=== PATIENT | female | born 1970 | race Caucasian/White ===

== ENCOUNTER 2019-10-29 07:13 | Day surgery (SDC) | payer MEDICAID, SELFPAY ==
[2019-10-28 13:10] VITALS: BMI 25.7
--- NOTE | 2019-10-29 07:38 | ANES.PREANE2 ---
Pre-Anesthetic Assessment Pre-Anesthetic Assessment: Height/Weight: Height 1.63 m Weight 68.039 kg Preop Diagnosis: colon Proposed Procedure: Operation Date: 10/29/19 08:00 Proposed Procedures p Colonoscopy(Not Applicable) - Rodolfo Nguyen MD Was Beta Nic taken within 24 hours: N/A Last intake: Intake Last Liquid Date 10/29/19 Last Liquid Time 05:30 Last Solid Date 10/27/19 Last Solid Time 22:00 Last Intake: 05:30 Social: Social History: Tobacco and No alcohol Packs per day: 1 Pack years: 35 Exam: Pre-Anes Outpt Exam: alert, oriented x 3, clear to auscultation bilaterally and regular rate & rhythm Airway: Submandibular: WNL Cervical ROM: WNL MP: 1 Dentition: False Pulmonary: Pulmonary: None reported CV/HEM: CV/HEM: Anemia : : Chronic renal Insufficiency (Pt renal failure 3 yrs ago with sepsis) GI: GI: None reported Metabolic: Metabolic: None reported Musc/skel: Musc/skel: Lower Back Pain Neuropsych: Neuropsych: Anxiety and Depression Anesthetic Plan: ASA status: 2 Anesthesia: Anesthesia Evaluation and MAC Risk of > 500 ml blood loss (7ml/kg in children): No PFSH Anesthesia PFSH: Social History Smoking and tobacco status: light tobacco smoker Alcohol intake: current Alcohol intake frequency: holidays/special occasions only Data Anesthesia Cardiac Studies: No Data to Display
[2019-10-29 07:39] VITALS: BP 131/85; PULSE 76; RESP 18; TEMP 36.5; O2SAT 100
[2019-10-29] MEDS: sodium chloride 0.9% 1,000 ML 30 ML (07:55)
--- NOTE | 2019-10-29 08:12 | W.PM.OPSFHP ---
Same Day Surgery H&P Indication for Procedure/HPI DATE OF PROCEDURE: October 29, 2019 CHIEF COMPLAINT/INDICATIONFOR SURGICAL PROCEDURE: Rectal bleeding PREOP DIAGNOSIS: colon PLANNED PROCEDRUE: Operation Date: 10/29/19 08:00 Proposed Procedures p Colonoscopy(Not Applicable) - Rodolfo Nguyen MD 48-year-old female status post LAR for rectal cancer who had seen 6 months ago for bleeding per rectum. Patient was unable to complete her course of chemotherapy. She states that she could not make the ride here until now. Finally she decided to have her colonoscopy. She continues to have abdominal pain with alternating constipation and diarrhea and occasional blood in stools. Medications/Allergies* Home Medications Medication Instructions Recorded Confirmed Type cyclobenzaprine 10 mg PO TID PRN 09/07/19 10/29/19 History estradiol 1 mg PO DAILY 09/07/19 10/29/19 History protriptyline 10 mg PO QID 09/07/19 10/29/19 History ropinirole [Requip] 1.5 mg PO DAILY 09/07/19 10/29/19 History Allergies/Adverse Reactions Allergy/AdvReac Type Severity Reaction Status Date / Time fluoxetine [From Prozac] Allergy Unknown Verified 09/07/19 08:44 latex Allergy ALGY-Anaphy Verified 10/28/19 13:11 laxis NSAIDS (Non-Steroidal Allergy Unknown Verified 09/07/19 08:44 Anti-Inflamma Penicillins Allergy ALGY-Anaphy Verified 09/07/19 08:44 laxis Pertinent History/Comorbid Conditions* Medical History (Updated 10/29/19 @ 08:12 by Rodolfo Nguyen MD) History of rectal cancer Surgical History (Updated 10/29/19 @ 08:12 by Rodolfo Nguyen MD) History of removal of Port-a-Cath Hx of cholecystectomy Hx of colonoscopy Hx of hysterectomy Social History Smoking and tobacco status: light tobacco smoker Alcohol intake: current Alcohol intake frequency: holidays/special occasions only Pertinent Exam Findings alert, oriented x 3 and regular rate & rhythm Recommendations Surgery/Procedure today Coding Level of Care Code 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
[2019-10-29 08:29] VITALS: BP 100/71; PULSE 66; RESP 16; TEMP 36.3; O2SAT 99
--- NOTE | 2019-10-29 08:39 | ANE.PACU2 ---
 Inpatient post-anesthesia follow up: Airway intact: Yes Vital signs: Temperature 97.4 F Pulse Rate 66 Respiratory Rate 16 Blood Pressure 100/71 Pulse Oximetry 99 Oxygen Delivery Me thod Nasal Cannula Oxygen Flow Rate 2 Fraction of Inspir ed Oxygen Hydration adequate: Yes Nausea and vomiting: No Pain level: 1 Mental status: Baseline
[2019-10-29 08:42] VITALS: BP 113/76; PULSE 69; RESP 16; O2SAT 99
== END 2019-10-29 08:52 | disposition home or self-care (01) ==
PROVIDERS: Family Provider Family Medicine; Visit Provider Surgery
PROC: 0DJD8ZZ Inspection of Lower Intestinal Tract, Via Natural or Artificial Opening Endoscopic (ICD-10-PCS; CPT 45378; principal; 2019-10-29 08:00)
DX: K62.5 Hemorrhage of anus and rectum (principal); F17.210 Nicotine dependence, cigarettes, uncomplicated; Z85.048 Personal history of other malignant neoplasm of rectum, rectosigmoid junction, and anus
CPT/HCPCS: 12345; 36415; 45378; J2704; J7030

== ENCOUNTER 2019-10-29 09:26 | Outpatient (REF) | payer MEDICAID, SELFPAY ==
[2019-10-29 09:57] LABS: Carcinoembryonic Antigen 6.1 ng/mL (0.0-4.7)
== END 2019-10-29 09:27 | disposition home or self-care (01) ==
LOC: LAB 09:26
PROVIDERS: Family Provider Family Medicine; Visit Provider Surgery
DX: C20 Malignant neoplasm of rectum (principal)
CPT/HCPCS: 82378

== ENCOUNTER 2020-03-31 12:46 | Outpatient (CLI) | payer MEDICAID, SELFPAY ==
[2020-03-31] MEDS: iohexol 300 mg/mL 50 mL Btl PO (13:08)
--- NOTE | 2020-03-31 14:30 | CT_ITS ---
WS: [id number] CT ABDOMEN PELVIS TECHNIQUE: Contrast-enhanced CT of the abdomen and pelvis with coronal and sagittal reformatted image s. CLINICAL INFORMATION: hematochezia COMPARISON: CT abdomen pelvis June 01, 2018, , May 10, 2018 DLP: 1078.[address] scans at [facility] use at least one of these dose optimization techniques: automat ed exposure control; mA and/or kV adjustment per patient size (includes targeted exams where dose is matched to clinical indication); or iterative reconstruction. FINDINGS: Prior cholecystectomy. Again seen is heterogeneous decreased attenuation involving the right hepatic lobe similar in appearance to the prior examinations. Mild capsular contraction with a small amount o f subcapsular fluid/soft tissue thickening is unchanged. Hepatic veins and portal vein are patent. No rmal splenic vein. Lung bases are well aerated. Normal spleen. Small splenule. Normal GE junction. Pancreas is normal. Adrenal glands are normal. No hydronephrosis. Bilateral renal cysts. Normal calib er abdominal aorta. No abdominal or periaortic lymphadenopathy. Stable sigmoid anastomosis. No evidence of small or large bowel obstruction. Fat-containing umbilical hernia. Low-attenuation collection left pelvis measuring 5.5 x 4.5 cm new from previous. Recommend f urther evaluation with ultrasound. 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 Prior hysterectomy. Normal lumbar spine. CT/CT abdomen pelvis w con* [id number] IMPRESSION: 1. Again seen is heterogeneous enhancement involving the right hepatic lobe wi th capsular thickening/fluid. This is unchanged in appearance since prior exami nations. 2. Prior cholecystectomy. 3. New low-attenuation lesion in the left lower pelvis along the left adnexa m easuring 4.5 x 5.5 CM. This may represent an ovarian lesion or postoperative se harry. Recommend further evaluation with ultrasound. 4. Stable sigmoid anastomosis.
[2020-03-31] MEDS: iohexol 300 mg/mL 100 mL Btl IV (14:40)
== END 2020-03-31 12:47 | disposition home or self-care (01) ==
LOC: RADWPI 12:48
PROVIDERS: Family Provider Family Medicine; PCP Family Medicine; Visit Provider Surgery
DX: K92.1 Melena (principal); K63.89 Other specified diseases of intestine
CPT/HCPCS: 74177; Q9967

== ENCOUNTER 2020-04-08 07:36 | Outpatient (CLI) | payer MEDICAID, SELFPAY ==
--- NOTE | 2020-04-08 08:00 | US_ITS ---
WS: [id number] ULTRASOUND PELVIS TECHNIQUE: Transabdominal and transvaginal. ULTRASOUND PELVIS TECHNIQUE: Transabdominal. CLINICAL INFORMATION: fluid in pelvis per CT scan LMP: : No. COMPARISON: None. FINDINGS: Prior hysterectomy with both ovaries right. Adnexa: History of both ovaries removed. Anechoic cystic lesion left adnexa measuring 2.8 x 4.0 x 5.4 CM. This corresponds to the low-attenuation lesion on the recent CT. Slightly irregular border. Per ipheral nodularity with some vascularity. This lesion is indeterminant and considerations complex pos toperative seroma versus serous/mucinous cystic neoplasm. Recommend DEMAND INSPECTOR/surgery consultation for rese ction considering size. Free fluid: None. Other findings: None. US/US pelvic with transvaginal IMPRESSION: 1. Anechoic cystic lesion corresponds to the lesion seen on the recent CT rich uring 3.8 x 4.0 x 5.4 CCM. Slightly irregular border with peripheral nodularity with blood flow. Recommend DEMAND INSPECTOR/surgery consultation for consideration of resec tion.
== END 2020-04-08 07:37 | disposition home or self-care (01) ==
LOC: US 07:37
PROVIDERS: PCP Family Medicine; Visit Provider Surgery
DX: R93.89 Abnormal findings on diagnostic imaging of other specified body structures (principal)
CPT/HCPCS: 76830; 76856

== ENCOUNTER 2020-04-25 07:47 | Day surgery (SDC) | payer MEDICAID, SELFPAY ==
[2020-04-22 14:13] VITALS: BMI 25.7
[2020-04-25 08:07] VITALS: BP 121/86; PULSE 67; RESP 18; TEMP 36.1; O2SAT 95
[2020-04-25] MEDS: sodium chloride 0.9% 1,000 ML 30 ML IV (08:14)
--- NOTE | 2020-04-25 08:55 | W.PM.OPSUD ---
Surgery/Procedure H&P Update DATE OF PROCEDURE: April 25, 2020 DATE H&P PERFORMED: 04/18/20 H&P UPDATE INFORMATION: I have reviewed H&P completed within last 30 days, I have examined patient prior to procedure and No changes to prior documentation PREOP DIAGNOSIS: Enlarged supraclavicular lymph node PLANNED PROCEDURE: Operation Date: 04/25/20 09:45 Proposed Procedures p Excision Lymph Node of right supraclavicular [id number] R22.1(Right) - Rodolfo Nguyen MD
--- NOTE | 2020-04-25 09:01 | ANES.PREANE2 ---
Pre-Anesthetic Assessment Pre-Anesthetic Assessment: Height/Weight: Height 1.63 m Weight 68.039 kg Temp Pulse Resp BP Pulse Ox 97.0 F L 67 18 121/86 95 04/25/20 08:07 04/25/20 08:07 04/25/20 08:07 04/25/20 08:07 04/25/20 08:07 Preop Diagnosis: Enlarged supraclavicular lymph node Proposed Procedure: Operation Date: 04/25/20 09:45 Proposed Procedures p Excision Lymph Node of right supraclavicular [id number] R22.1(Right) - Rodolfo Nguyen MD Familial anesthetic complications: None Last intake: Intake Last Liquid Date 04/24/20 Last Liquid Time 20:00 Last Solid Date 04/24/20 Last Solid Time 08:00 Social: Social History: Tobacco and No alcohol Exam: Pre-Anes Outpt Exam: alert, oriented x 3, clear to auscultation bilaterally and regular rate & rhythm Airway: Cervical ROM: WNL MP: 3 Dentition: False GI: GI: GERD Musc/skel: Musc/skel: Fibromyalgia and Lower Back Pain Anesthetic Plan: ASA status: 2 Anesthesia: MAC Risk of > 500 ml blood loss (7ml/kg in children): No Meds/Allergies Current Medications: Current Medications Generic Name Dose Route Start Last Admin Trade Name Freq PRN Reason Stop Dose Admin Sodium Chloride 1,000 mls @ 30 ml s/hr 04/25/20 08:15 04/25/20 08:14 Sodium Chloride 0.9% IV 30 mls/hr .Q24H GODFREY Administration PFSH Anesthesia PFSH: Medical History History of rectal cancer Surgical History History of arthroscopy of right shoulder History of removal of Port-a-Cath Hx of cholecystectomy Hx of colonoscopy : poor prep, otherwise normal Hx of hysterectomy Family History Denies family history of Anesthesia complication Bleeding disorder Social History Smoking and tobacco status: light tobacco smoker Alcohol intake: current Alcohol intake frequency: holidays/special occasions only Household members: family Marital status: Single Current occupational status: disabled History of recent travel: No Data Anesthesia Cardiac Studies: No Data to Display
[2020-04-25] MEDS: lidocaine 1% INJ 20 mL IM (10:41)
[2020-04-25 11:25] VITALS: BP 107/67; PULSE 78; RESP 16; TEMP 35.9; O2SAT 96
--- NOTE | 2020-04-25 11:34 | PM.OP ---
Operative Report Date of procedure: April 25, 2020 Pre-op Diagnosis: Enlarged supraclavicular lymph node, history of rectal cancer Post-op Diagnosis: Enlarged lymph node right posterior triangle of neck Normal colonoscopy Procedure Done: Excision of deep cervical lymph node right posterior triangle of neck Colonoscopy parasplenic flexure without biopsy Pathology: Cervical lymph node Surgeon: Rodolfo Nguyen Anesthesia: MAC Condition: stable Disposition: same day Procedure: The patient was taken to the operating room and placed in the left lateral position under MAC after IV antibiotic had been administered. The right side of the neck over the palpable mass was prepped and draped in a sterile manner. 1% lidocaine with 0.5% Marcaine was infiltrated around the palpable mass. Is 15 blade a 2 cm incision was made over the palpable mass parallel to the clavicle, subcutaneous tissue was divided using electrocautery, cervical fascia was divided and the lie of node was identified and dissected using combination of sharp dissection and electrocautery from the surrounding tissue. The lymphovascular bundle was identified, clipped with small clips and divided. Subcutaneous tissue was approximated using interrupted 3-0 Vicryl suture and skin was closed using running subcuticular 4-0 Monocryl suture and Dermabond. A colonoscope was introduced and advanced up to the cecum where the ileocecal valve and appendicular orifice was visualized. The colon prep was fair. The colonoscope was slowly withdrawn. Cecum: Normal Ascending colon: Normal Transverse colon: Normal Descending colon: Normal Sigmoid colon: Normal Rectum:: Normal XI:: Normal
--- NOTE | 2020-04-25 12:00 | ANE.PACU2 ---
Inpatient post-anesthesia follow up: Airway intact: Yes Vital signs: Temperature 96.7 F Pulse Rate 78 Respiratory Rate 16 Blood Pressure 107/67 Pulse Oximetry 96 Oxygen Delivery Me thod Room Air Oxygen Flow Rate Fraction of Inspir ed Oxygen Hydration adequate: Yes Nausea and vomiting: No Pain level: 2 Mental status: Baseline
== END 2020-04-25 12:15 | disposition home or self-care (01) ==
PROVIDERS: PCP Family Medicine; Visit Provider Surgery
PROC: (CPT 38500; principal; 2020-04-25 09:35)
PROC: 0DJD8ZZ Inspection of Lower Intestinal Tract, Via Natural or Artificial Opening Endoscopic (ICD-10-PCS; CPT 45378; 2020-04-25 09:35)
DX: C77.0 Secondary and unspecified malignant neoplasm of lymph nodes of head, face and neck (principal); Z85.048 Personal history of other malignant neoplasm of rectum, rectosigmoid junction, and anus; K21.9 Gastro-esophageal reflux disease without esophagitis; M79.7 Fibromyalgia; F17.210 Nicotine dependence, cigarettes, uncomplicated
CPT/HCPCS: 38500; 12345; 45378; 88305; J2250; J2704; J3010; J3490; J7030

== ENCOUNTER 2020-06-10 07:53 | Outpatient (CLI) | payer MEDICAID, SELFPAY ==
--- NOTE | 2020-06-10 13:02 | ONC FU_ITS ---
Dr. Angel follow up note Patient: Karo Rand Unit #: [id number]: [id number] Dicatated By: Ronni Angel M.D.Date of Visit:Jun 10, 2020 Onc Med Follow-up/Prog Note History of Present Illness: Mrs. Rand is a 49 -year-old female with history of hepatitis C and recently developed right lower quadrant pain. She underwent abdominal sonogram on 07/17/2017 which showed hepatomegaly with fatty liver or diffuse hepatocellular disease, spleen was within normal limit. Follow-up CT scan of abdomen was recommended on 07/25/[address] scan of abdomen pelvis which showed abnormal appearance to the liver which was new since prior CT scan done on 03/31/2016 and was not seen on the recent ultrasound. Infiltrating area of decreased attenuation with capsular contraction and fluid over the right lobe of the liver. A CBC done on 10/04/2017 showed white blood count 8.2 hemoglobin 12.8 crit 37.9 platelets 79,000. She, then had complaints of rectal bleed for 6 months, initially, she was referred to [place] for colonoscopy but patient did not go there eventually , As per patient, she underwent colonoscopy in November 2017. At that time, she was diagnosed with colorectal cancer and she was referred to Dr. Keenan in [place] for surgery. She apparently developed C. difficile infection repeatedly , requiring hospitalization, so she did not see Dr. Keenan till February 2018. Finally, on 04/15/2018 she underwent laparoscopic low anterior resection of sigmoid colon with en bloc right salpingo-oophorectomy and left salpingectomy. The final pathology report showed sigmoid colon/upper rectum tumor size 4.8 x 3.1 x 1.5 cm, adenocarcinoma, well-differentiated, tumor invades muscularis propria surgical margins clean no lymphovascular invasion T2, 1 out of 26 lymph node were examined showed metastatic disease N1. During surgery liver appeared to be of normal size no evidence of liver tumor Patient has a history of alcohol abuse-stating ,she used to drink hard liquor now sixpack of beer every weekend. She reports she also smokes about pack a day. Patient said she has history of hepatitis C infection but never been treated. Ms Rand states her primary care physician, , wants her to finish chemotherapy first before consider anti-hep C treatment. Ms. Rand did have port placement with Dr. Pedersen with a left subclavian venous access device on 08/04/2018.And started on adjuvant chemotherapy with FOLFOX on September 10, 2019 and patient received second/last dose of chemotherapy with FOLFOX on September 24, 2018 and at that time she decided to discontinue chemotherapy AGAINST MEDICAL ADVICE, knowing the risk versus benefits and she was offered second opinion or referral to another facility or medical oncologist but patient declined rather trust God and think He has cured her. Came for follow-up, denies any specific complaints but as per patient in the spring this year she noticed mass in her right lower neck, and she continue to observe eventually went to see her primary care physician and patient was given oral antibiotics and as per patient CT scan of the neck was done which confirmed the mass and the mass continued to grow and eventually went to see Dr. Nguyen who ordered CT scan of abdomen pelvis which showed heterogeneous enhancing involving right hepatic lobe with capsular thickening/fluid but unchanged when compared with previous exams. And also showed new low-attenuation lesion in the left lower pelvis along with left adnexa measuring 4.5 x 5.5 cm, for which she was at referred to [facility], Dr. Reed as per patient she saw him last week and underwent sonogram and now scheduled see him coming Saturday. As far as, right lower neck mass is concerned patient underwent excisional biopsy of right deep cervical lymph node on April 25, 2020 and final pathology report came back consistent with metastatic adenocarcinoma most consistent with colorectal origin.As per patient when she was 18 years old she had a hysterectomy done along with 1 ovary removed and when she underwent colon surgery in March 2018, other ovary was also removed. Patient was last seen here in clinic was in October 2018 at that time patient decided not to come back rather follow-up with her primary care physician and also had her Port-A-Cath removed from her left chest. Medications: Estradiol 1 Tablet (of 1 mg) Oral daily, Gabapentin 1 Tablet (of 800 mg) Oral t.i.d. Allergies: Latex, NSAIDs, Penicillins, and PROzac. Review of Systems: Constitutional - Appetite is good and weight is stable. No fever, night sweats, or hot flashes. Energy level is poor, ENMT - No sinus congestion/drainage. No mouth sores. No sore throat or difficulty swallowing, Hematologic/Lymphatic - No abnormal bruising or bleeding, Respiratory - No shortness of breath. No cough. No pleuritic pain or hemoptysis, Cardiovascular - No angina pain. No palpitations, Gastrointestinal - No nausea or vomiting. No heartburn or acid reflux. No diarrhea or constipation. No blood in the stool or black stools, Genitourinary (F) - No dysuria or hematuria. No urinary frequency. No urgency or incontinence, Musculoskeletal - No joint or bone pain, Neurologic - No headache or dizziness. No numbness or tingling. No other focal neurologic symptoms, Psychiatric - No anxiety. Positive for depression. No insomnia. Vital Signs: Performed on Jun 10, 2020 08:25 Height - 64.00 in Weight - 179.8 lbs (HIGH) BSA - 1.87 sq.m BMI - 30.86 (HIGH) Temperature - 97.6 F (LOW) Pulse - 82 /min Respiration - 24 /min BP - 127/89 mm(hg) O2 Sat - 100 % Pain - 8 Performance Status: 1 - No physically strenuous activity, but ambulatory and able to carry out light or sedentary work (e.g. office work, light house work). (ECOG) Physical Examination: ENMT - Denies any mouth sores, thrush or jaundice, Respiratory - Denies any shortness of breath or wheezing, Cardiovascular - Denies any tachycardia or palpitation, Abdomen - Denies any abdominal pain or fullness, Extremities - Denies any lower extremity edema. Lab/Imaging: Most recent lab results are not available for this patient. Impression: Metastatic colorectal cancer per right cervical lymph node excisional biopsy done on April 25, 2020, immunohistochemistry showed positive for CDX2, CEA, CK20, CK Philip and negative for Napsin, TTF-1, ER. CT scan of abdomen pelvis done on March 31, 2020 showed stable heterogeneous enhancement involving the right hepatic lobe with capsular thickening/fluid. And new low-attenuation lesion in the left lower pelvis along the left adnexa measuring 4.5 x 5.5 cm. Adenocarcinoma of sigmoid colon/upper rectum status post laparoscopic low anterior resection with en bloc right salpingo-oophorectomy and left salpingectomy done on 04/15/2018 Final pathology report shows adenocarcinoma well differentiated 4.8 x 3.1 x 1.5 cm, no lymphovascular or perineural invasion seen, surgical margins clear, tumor invades muscularis propria T2 next 1 out of 26 lymph nodes were examined showed metastatic disease N1 stage pIIIa Isolated mild Thrombocytopenia ? Etiology could be due to low-grade ITP, or due to hep C reactivation, or due to alcohol induced bone marrow suppression., Idiopathic or due to platelet clumping. Area of low attenuation along the periphery and right lobe of the liver towards the diaphragmatic surface surrounding portal vein, differential could be, benign or infiltrating neoplasm such as hepatocellular carcinoma or cholangiocarcinoma or fibrosis During surgery for colorectal cancer on 04/15/2018 liver appeared to be normal showed no masses as per surgeon's note discussed with the patient her disease status and treatment options. He has advised adjuvant chemotherapy with FOLFOX every 2 weeks ???12. And also refer her to radiation oncology for evaluation for a role of adjuvant radiation therapy. As far as hepatitis C is concern, case was discussed with her primary care physician Dr. chance , and there is a no documentation about hep C but Dr. chnace will evaluate her and manage if needed. Ms. Rand underwent venous access device placement with Dr. Pedersen with subclavian venous access device on 08/04/2018. Started on FOLFOX on 09/10/2018 Patient received second/last dose on 09/24/2018 And then decided to discontinue chemotherapy AGAINST MEDICAL ADVICE, patient was aware of risk versus benefits. She was offered second opinion or referral to other facility or medical oncologist but patient declined Plan: Discussed with patient regarding her newly diagnosed metastatic disease to the right supraclavicular area, patient was noncompliant with her adjuvant chemotherapy as well as follow-up, in the past now with progressive right supraclavicular mass since spring 2019 eventually underwent excisional biopsy on April 25, 2020 which confirmed metastatic colorectal cancer. At this point we will proceed with CT PET scan to assess other area of metastatic disease and also check CEA and CA-125 and patient will return to clinic after CT PET scan with CBC CMP and for further discussion regarding treatment. Signed By: Ronni Angel M.D. <<Signature on File>>
== END 2020-06-10 07:54 | disposition home or self-care (01) ==
LOC: ONCMED 07:55
PROVIDERS: PCP Family Medicine; Visit Provider Internal Medicine Hematology & Oncology
DX: C18.8 Malignant neoplasm of overlapping sites of colon (principal); C77.8 Secondary and unspecified malignant neoplasm of lymph nodes of multiple regions; D69.6 Thrombocytopenia, unspecified; K76.0 Fatty (change of) liver, not elsewhere classified; Z91.19 Patient's noncompliance with other medical treatment and regimen; Z90.49 Acquired absence of other specified parts of digestive tract
CPT/HCPCS: 99214

== ENCOUNTER 2020-07-04 05:56 | Outpatient (CLI) | payer MEDICAID, SELFPAY ==
[2020-07-04 15:40] LABS: Basophils # 0.1 10^3/uL (0.0-0.1); Eosinophils # 0.3 10^3/uL (0.0-0.8); Eosinophils % 4.7 %; Hematocrit 36.6 % (37.0-47.0); Hemoglobin 11.9 g/dL (11.5-15.3); Lymphocytes # 2.3 10^3/uL (0.8-4.8); Lymphocytes % 38.4 %; Mean Corpuscular HGB Conc 32.5 g/dL (30.0-36.0); Mean Corpuscular Hemoglobin 31.6 pg (28.0-34.0); Mean Corpuscular Volume 97.1 fL (81-99); Mean Platelet Volume 10.4 fL (7.4-10.4); Monocytes # 0.3 10^3/uL (0.2-0.9); Monocytes % 4.5 %; Neutrophils # 3.05 10^3/uL (1.8-7.7); Neutrophils % 51.1 %; Nucleated Red Blood Cells % 0 %; Platelet Count 144 10^3/cmm (130-400); Red Blood Count 3.77 10^6/uL (4.1-5.3); Red Cell Distribution Width 13.8 % (12.1-15.1)
[2020-07-04 16:32] LABS: Alanine Aminotransferase 15 U/L (0-33); Albumin Level 3.9 g/dL (3.5-5.2); Alkaline Phosphatase 146 IU/L (35-105); Anion Gap 12.1 (5-19); Aspartate Amino Transferase 21 U/L (0-32); Blood Urea Nitrogen 10 mg/dL (6-20); Calcium 8.5 mg/dL (8.5-10.5); Carbon Dioxide 24 mmol/L (22-29); Chloride 104 mmol/L (98-107); Globulin 3.6 g/dL (1.3-4.6); Glucose 106 mg/dL (65-115); Osmolality Calculated 281 mOsm/kg (285-295); Potassium 4.1 mmol/L (3.5-5.1); Sodium 136 mmol/L (136-145); Total Bilirubin 0.4 mg/dL (0.15-1.2); Total Protein 7.5 g/dL (6.6-8.7)
[2020-07-04 17:03] LABS: Carcinoembryonic Antigen 9.5 ng/mL (0.0-4.7)
[2020-07-04 17:05] LABS: CA 125 18.6 U/mL (0-35)
--- NOTE | 2020-07-05 09:50 | ONC FU_ITS ---
Dr. Angel follow up note Patient: Karo Rand Unit #: [id number]: 1970 Dicatated By: Ronni Angel M.D.Date of Visit:Jul 04, 2020 Onc Med Follow-up/Prog Note History of Present Illness: Mrs. Rand is a 49 -year-old female with history of hepatitis C and recently developed right lower quadrant pain. She underwent abdominal sonogram on 07/17/2017 which showed hepatomegaly with fatty liver or diffuse hepatocellular disease, spleen was within normal limit. Follow-up CT scan of abdomen was recommended on 07/25/[address] scan of abdomen pelvis which showed abnormal appearance to the liver which was new since prior CT scan done on 03/31/2016 and was not seen on the recent ultrasound. Infiltrating area of decreased attenuation with capsular contraction and fluid over the right lobe of the liver. A CBC done on 10/04/2017 showed white blood count 8.2 hemoglobin 12.8 crit 37.9 platelets 79,000. She, then had complaints of rectal bleed for 6 months, initially, she was referred to [place] for colonoscopy but patient did not go there eventually , As per patient, she underwent colonoscopy in November 2017. At that time, she was diagnosed with colorectal cancer and she was referred to Dr. Keenan in [place] for surgery. She apparently developed C. difficile infection repeatedly , requiring hospitalization, so she did not see Dr. Keenan till February 2018. Finally, on 04/15/2018 she underwent laparoscopic low anterior resection of sigmoid colon with en bloc right salpingo-oophorectomy and left salpingectomy. The final pathology report showed sigmoid colon/upper rectum tumor size 4.8 x 3.1 x 1.5 cm, adenocarcinoma, well-differentiated, tumor invades muscularis propria surgical margins clean no lymphovascular invasion T2, 1 out of 26 lymph node were examined showed metastatic disease N1. During surgery liver appeared to be of normal size no evidence of liver tumor Patient has a history of alcohol abuse-stating ,she used to drink hard liquor now sixpack of beer every weekend. She reports she also smokes about pack a day. Patient said she has history of hepatitis C infection but never been treated. Ms Rand states her primary care physician, , wants her to finish chemotherapy first before consider anti-hep C treatment. Ms. Rand did have port placement with Dr. Pedersen with a left subclavian venous access device on 08/04/2018.And started on adjuvant chemotherapy with FOLFOX on September 10, 2019 and patient received second/last dose of chemotherapy with FOLFOX on September 24, 2018 and at that time she decided to discontinue chemotherapy AGAINST MEDICAL ADVICE, knowing the risk versus benefits and she was offered second opinion or referral to another facility or medical oncologist but patient declined rather trust God and think He has cured her. as per patient in the spring this year she noticed mass in her right lower neck, and she continue to observe eventually went to see her primary care physician and patient was given oral antibiotics and as per patient CT scan of the neck was done which confirmed the mass and the mass continued to grow and eventually went to see Dr. Nguyen who ordered CT scan of abdomen pelvis which showed heterogeneous enhancing involving right hepatic lobe with capsular thickening/fluid but unchanged when compared with previous exams. And also showed new low-attenuation lesion in the left lower pelvis along with left adnexa measuring 4.5 x 5.5 cm, for which she was at referred to [facility], Dr. Reed as per patient she saw him last week and underwent sonogram As per patient when she was 18 years old she had a hysterectomy done along with 1 ovary removed and when she underwent colon surgery in March 2018, other ovary was also removed. As far as, right lower neck mass is concerned patient underwent excisional biopsy of right deep cervical lymph node on April 25, 2020 and final pathology report came back consistent with metastatic adenocarcinoma most consistent with colorectal origin. CT PET scan done on June 25, 2020 showed presacral pelvic soft tissue mass measuring 1.5 cm with SUV of 5.2 consistent with recurrence, and there are bilateral retroperitoneal nodes in the periaortic distribution, subcentimeter in size with SUV up to 5.5. Solitary mesenteric root 1.2 cm lymph node with SUV 3.6. Normal liver, a solitary right supraclavicular lymph node measuring 1.1 cm and the left mediastinum superior Paratracheal 2L lymph node measuring 1.7 cm are FDG positive. Subpleural pulmonary nodule in the right upper lobe, left upper lobe and superior segment of left lower lobe measuring up to 5 mm are too small to characterize. Patient was last seen here in clinic was in October 2018 at that time patient decided not to come back rather follow-up with her primary care physician and also had her Port-A-Cath removed from her left chest. Came for follow-up, denies any specific complaint except chronic lower back/pelvic pain in the past used to take hydrocodeine. Otherwise no fever chills, no nausea or vomiting, no diarrhea or constipation, no hemoptysis or hematemesis Medications: Estradiol 1 Tablet (of 1 mg) Oral daily, Gabapentin 1 Tablet (of 800 mg) Oral t.i.d. Allergies: Latex, NSAIDs, Penicillins, and PROzac. Review of Systems: Constitutional - Appetite is good and weight is stable. No fever, night sweats, or hot flashes. Energy level is poor, ENMT - No sinus congestion/drainage. No mouth sores. No sore throat or difficulty swallowing, Hematologic/Lymphatic - No abnormal bruising or bleeding, Respiratory - No shortness of breath. No cough. No pleuritic pain or hemoptysis, Cardiovascular - No angina pain. No palpitations, Gastrointestinal - No nausea or vomiting. No heartburn or acid reflux. No diarrhea or constipation. No blood in the stool or black stools, Genitourinary (F) - No dysuria or hematuria. No urinary frequency. No urgency or incontinence, Musculoskeletal - No joint or bone pain, Neurologic - No headache or dizziness. No numbness or tingling. No other focal neurologic symptoms, Psychiatric - No anxiety. Positive for depression. No insomnia. Vital Signs: Vitals are not available for this patient. Performance Status: 1 - No physically strenuous activity, but ambulatory and able to carry out light or sedentary work (e.g. office work, light house work). (ECOG) Physical Examination: ENMT - No mouth sores, no thrush, no jaundice, Respiratory - Lungs are clear to auscultation, Cardiovascular - Regular rate and rhythm of heart, Abdomen - Soft, bowel sounds present, Extremities - No visible edema. Lab/Imaging: Most recent lab results are not available for this patient. Impression: Metastatic colorectal cancer per right cervical lymph node excisional biopsy done on April 25, 2020, immunohistochemistry showed positive for CDX2, CEA, CK20, CK Philip and negative for Napsin, TTF-1, ER. CT scan of abdomen pelvis done on March 31, 2020 showed stable heterogeneous enhancement involving the right hepatic lobe with capsular thickening/fluid. And new low-attenuation lesion in the left lower pelvis along the left adnexa measuring 4.5 [address] PET scan done on June 25, 2020 showed presacral pelvic soft tissue mass consistent with recurrence. Malignant abdominal retroperitoneal and mesenteric lymphadenopathy size about 1.5 cm. Malignant right supraclavicular left mediastinal paratracheal adenopathy and 5 mm subpleural pulmonary nodules are too small to characterize h/o Adenocarcinoma of sigmoid colon/upper rectum status post laparoscopic low anterior resection with en bloc right salpingo-oophorectomy and left salpingectomy done on 04/15/2018 Final pathology report shows adenocarcinoma well differentiated 4.8 x 3.1 x 1.5 cm, no lymphovascular or perineural invasion seen, surgical margins clear, tumor invades muscularis propria T2 next 1 out of 26 lymph nodes were examined showed metastatic disease N1 stage pIIIa Isolated mild Thrombocytopenia ? Etiology could be due to low-grade ITP, or due to hep C reactivation, or due to alcohol induced bone marrow suppression., Idiopathic or due to platelet clumping. Area of low attenuation along the periphery and right lobe of the liver towards the diaphragmatic surface surrounding portal vein, differential could be, benign or infiltrating neoplasm such as hepatocellular carcinoma or cholangiocarcinoma or fibrosis During surgery for colorectal cancer on 04/15/2018 liver appeared to be normal showed no masses as per surgeon's note discussed with the patient her disease status and treatment options. He has advised adjuvant chemotherapy with FOLFOX every 2 weeks ???12. And also refer her to radiation oncology for evaluation for a role of adjuvant radiation therapy. As far as hepatitis C is concern, case was discussed with her primary care physician Dr. chance , and there is a no documentation about hep C but Dr. chance will evaluate her and manage if needed. Ms. Rand underwent venous access device placement with Dr. Pedersen with subclavian venous access device on 08/04/2018. Started on FOLFOX on 09/10/2018 Patient received second/last dose on 09/24/2018 And then decided to discontinue chemotherapy AGAINST MEDICAL ADVICE, patient was aware of risk versus benefits. She was offered second opinion or referral to other facility or medical oncologist but patient declined Plan: Discussed with patient regarding her labs white blood count 6 hemoglobin 11.9 hematocrit 36.6, platelets 144,000 CMP within normal limits and CT PET scan findings which shows metastatic disease involving retroperitoneal lymph nodes left paratracheal lymph node and presacral mass. Along with biopsy-proven right supraclavicular lymph node. Clinically, she is doing well with no new signs symptom except persistent lower back/pelvic pain which is being controlled with hydrocodone. Discussed with patient regarding her CT PET scan finding and further treatment options including systemic chemotherapy FOLFOX plus minus Avastin or single agent Xeloda plus minus Avastin. But patient is not sure whether she would consider chemotherapy at this point, as she has carlie in God and He will take care of for her . patient was advised to reconsider her decision and patient says she would and will let us know so she was requested to come back next week for further discussion, she was also given prescription of hydrocodone. Signed By: Ronni Angel M.D. <<Signature on File>>
== END 2020-07-04 05:57 | disposition home or self-care (01) ==
LOC: ONCMED 05:57
PROVIDERS: PCP Family Medicine; Visit Provider Internal Medicine Hematology & Oncology
DX: C18.8 Malignant neoplasm of overlapping sites of colon (principal); D69.6 Thrombocytopenia, unspecified; B19.20 Unspecified viral hepatitis C without hepatic coma; Z79.899 Other long term (current) drug therapy
CPT/HCPCS: 36415; 80053; 82378; 85025; 86304; 99214

== ENCOUNTER 2020-07-12 08:00 | Outpatient (CLI) | payer MEDICAID, SELFPAY ==
--- NOTE | 2020-07-29 09:36 | ONC FU_ITS ---
Dr. Angel follow up note Patient: Karo Rand Unit #: [id number]: 1970 Dicatated By: Ronni Angel M.D.Date of Visit:Jul 12, 2020 Onc Med Follow-up/Prog Note History of Present Illness: Mrs. Rand is a 49 -year-old female with history of hepatitis C and recently developed right lower quadrant pain. She underwent abdominal sonogram on 07/17/2017 which showed hepatomegaly with fatty liver or diffuse hepatocellular disease, spleen was within normal limit. Follow-up CT scan of abdomen was recommended on 07/25/[address] scan of abdomen pelvis which showed abnormal appearance to the liver which was new since prior CT scan done on 03/31/2016 and was not seen on the recent ultrasound. Infiltrating area of decreased attenuation with capsular contraction and fluid over the right lobe of the liver. A CBC done on 10/04/2017 showed white blood count 8.2 hemoglobin 12.8 crit 37.9 platelets 79,000. She, then had complaints of rectal bleed for 6 months, initially, she was referred to [place] for colonoscopy but patient did not go there eventually , As per patient, she underwent colonoscopy in November 2017. At that time, she was diagnosed with colorectal cancer and she was referred to Dr. Keenan in [place] for surgery. She apparently developed C. difficile infection repeatedly , requiring hospitalization, so she did not see Dr. Keenan till February 2018. Finally, on 04/15/2018 she underwent laparoscopic low anterior resection of sigmoid colon with en bloc right salpingo-oophorectomy and left salpingectomy. The final pathology report showed sigmoid colon/upper rectum tumor size 4.8 x 3.1 x 1.5 cm, adenocarcinoma, well-differentiated, tumor invades muscularis propria surgical margins clean no lymphovascular invasion T2, 1 out of 26 lymph node were examined showed metastatic disease N1. During surgery liver appeared to be of normal size no evidence of liver tumor Patient has a history of alcohol abuse-stating ,she used to drink hard liquor now sixpack of beer every weekend. She reports she also smokes about pack a day. Patient said she has history of hepatitis C infection but never been treated. Ms Rand states her primary care physician, , wants her to finish chemotherapy first before consider anti-hep C treatment. Ms. Rand did have port placement with Dr. Pedersen with a left subclavian venous access device on 08/04/2018.And started on adjuvant chemotherapy with FOLFOX on September 10, 2019 and patient received second/last dose of chemotherapy with FOLFOX on September 24, 2018 and at that time she decided to discontinue chemotherapy AGAINST MEDICAL ADVICE, knowing the risk versus benefits and she was offered second opinion or referral to another facility or medical oncologist but patient declined rather trust God and think He has cured her. as per patient in the spring this year she noticed mass in her right lower neck, and she continue to observe eventually went to see her primary care physician and patient was given oral antibiotics and as per patient CT scan of the neck was done which confirmed the mass and the mass continued to grow and eventually went to see Dr. Nguyen who ordered CT scan of abdomen pelvis which showed heterogeneous enhancing involving right hepatic lobe with capsular thickening/fluid but unchanged when compared with previous exams. And also showed new low-attenuation lesion in the left lower pelvis along with left adnexa measuring 4.5 x 5.5 cm, for which she was at referred to [facility], Dr. Reed as per patient she saw him last week and underwent sonogram As per patient when she was 18 years old she had a hysterectomy done along with 1 ovary removed and when she underwent colon surgery in March 2018, other ovary was also removed. As far as, right lower neck mass is concerned patient underwent excisional biopsy of right deep cervical lymph node on April 25, 2020 and final pathology report came back consistent with metastatic adenocarcinoma most consistent with colorectal origin. CT PET scan done on June 25, 2020 showed presacral pelvic soft tissue mass measuring 1.5 cm with SUV of 5.2 consistent with recurrence, and there are bilateral retroperitoneal nodes in the periaortic distribution, subcentimeter in size with SUV up to 5.5. Solitary mesenteric root 1.2 cm lymph node with SUV 3.6. Normal liver, a solitary right supraclavicular lymph node measuring 1.1 cm and the left mediastinum superior Paratracheal 2L lymph node measuring 1.7 cm are FDG positive. Subpleural pulmonary nodule in the right upper lobe, left upper lobe and superior segment of left lower lobe measuring up to 5 mm are too small to characterize. Patient was last seen here in clinic was in October 2018 at that time patient decided not to come back rather follow-up with her primary care physician and also had her Port-A-Cath removed from her left chest. Came for follow-up, denies any specific complaints except persistent chronic back pain, not being controlled with the current pain medication. No fever chills, no nausea or vomiting, no diarrhea constipation, no hemoptysis or hematemesis, no jaundice Medications: Estradiol 1 Tablet (of 1 mg) Oral daily, Gabapentin 1 Tablet (of 800 mg) Oral t.i.d. Allergies: Latex, NSAIDs, Penicillins, and PROzac. Review of Systems: Constitutional - Appetite is good and weight is stable. No fever, night sweats, or hot flashes. Energy level is poor, ENMT - No sinus congestion/drainage. No mouth sores. No sore throat or difficulty swallowing, Hematologic/Lymphatic - No abnormal bruising or bleeding, Respiratory - No shortness of breath. No cough. No pleuritic pain or hemoptysis, Cardiovascular - No angina pain. No palpitations, Gastrointestinal - No nausea or vomiting. No heartburn or acid reflux. No diarrhea or constipation. No blood in the stool or black stools, Genitourinary (F) - No dysuria or hematuria. No urinary frequency. No urgency or incontinence, Musculoskeletal - No joint or bone pain, Neurologic - No headache or dizziness. No numbness or tingling. No other focal neurologic symptoms, Psychiatric - No anxiety. Positive for depression. No insomnia. Vital Signs: Performed on Jul 12, 2020 16:04 Height - 64.00 in Weight - 181.4 lbs (HIGH) BSA - 1.88 sq.m BMI - 31.14 (HIGH) Temperature - 97.4 F (LOW) Pulse - 87 /min Respiration - 22 /min BP - 144/41 mm(hg) (HIGH) O2 Sat - 98 % Pain - 8 Performance Status: 1 - No physically strenuous activity, but ambulatory and able to carry out light or sedentary work (e.g. office work, light house work). (ECOG) Physical Examination: ENMT - No mouth sores, no thrush, no jaundice, Respiratory - Lungs are clear to auscultation, Cardiovascular - Regular rate and rhythm of heart, Abdomen - Soft, bowel sounds present, Extremities - No visible edema. Lab/Imaging: Most recent lab results are not available for this patient. Impression: Metastatic colorectal cancer per right cervical lymph node excisional biopsy done on April 25, 2020, immunohistochemistry showed positive for CDX2, CEA, CK20, CK Philip and negative for Napsin, TTF-1, ER. CT scan of abdomen pelvis done on March 31, 2020 showed stable heterogeneous enhancement involving the right hepatic lobe with capsular thickening/fluid. And new low-attenuation lesion in the left lower pelvis along the left adnexa measuring 4.5 [address] PET scan done on June 25, 2020 showed presacral pelvic soft tissue mass consistent with recurrence. Malignant abdominal retroperitoneal and mesenteric lymphadenopathy size about 1.5 cm. Malignant right supraclavicular left mediastinal paratracheal adenopathy and 5 mm subpleural pulmonary nodules are too small to characterize h/o Adenocarcinoma of sigmoid colon/upper rectum status post laparoscopic low anterior resection with en bloc right salpingo-oophorectomy and left salpingectomy done on 04/15/2018 Final pathology report shows adenocarcinoma well differentiated 4.8 x 3.1 x 1.5 cm, no lymphovascular or perineural invasion seen, surgical margins clear, tumor invades muscularis propria T2 next 1 out of 26 lymph nodes were examined showed metastatic disease N1 stage pIIIa Isolated mild Thrombocytopenia ? Etiology could be due to low-grade ITP, or due to hep C reactivation, or due to alcohol induced bone marrow suppression., Idiopathic or due to platelet clumping. Area of low attenuation along the periphery and right lobe of the liver towards the diaphragmatic surface surrounding portal vein, differential could be, benign or infiltrating neoplasm such as hepatocellular carcinoma or cholangiocarcinoma or fibrosis During surgery for colorectal cancer on 04/15/2018 liver appeared to be normal showed no masses as per surgeon's note discussed with the patient her disease status and treatment options. He has advised adjuvant chemotherapy with FOLFOX every 2 weeks ???12. And also refer her to radiation oncology for evaluation for a role of adjuvant radiation therapy. As far as hepatitis C is concern, case was discussed with her primary care physician Dr. chance , and there is a no documentation about hep C but Dr. chance will evaluate her and manage if needed. Ms. Rand underwent venous access device placement with Dr. Pedersen with subclavian venous access device on 08/04/2018. Started on FOLFOX on 09/10/2018 Patient received second/last dose on 09/24/2018 And then decided to discontinue chemotherapy AGAINST MEDICAL ADVICE, patient was aware of risk versus benefits. She was offered second opinion or referral to other facility or medical oncologist but patient declined Plan: Discussed with patient regarding her treatment options, patient has metastatic colorectal cancer confirmed with right supraclavicular lymph node biopsy, patient states she would agree for oral Xeloda alone as last time systemic chemotherapy made her sick not especially quit and she would not consider IV chemotherapy but will try oral as long as not making her sick, so in that case we will consider single agent Xeloda 1000 mg/m??? p.o. twice daily for day 1 through 14 and repeat every [address] PET scan after 4-6 cycle to assess the response. All the side effects possible benefits associated with Xeloda including but not limited to bone marrow suppression, nausea vomiting, mouth sores, jaundice, hand-foot syndrome, hair loss were mentioned, further teaching will be done by chemotherapy nurse, will obtain approval from her insurance prior to the treatment. Then she will return to clinic 2 weeks after initiation of palliative chemotherapy with oral Xeloda with CBC and CMP. As far as chronic pain is concerned, patient was recommended to go to pain clinic but she declined in that case we will consider morphine extended release 15 mg p.o. every 12 hours and she will continue hydrocodone for breakthrough. Signed By: Ronni Angel M.D. <<Signature on File>>
== END 2020-07-12 08:01 | disposition home or self-care (01) ==
LOC: ONCMED 07-18 07:43
PROVIDERS: PCP Family Medicine; Visit Provider Internal Medicine Hematology & Oncology
DX: C19 Malignant neoplasm of rectosigmoid junction (principal); C77.0 Secondary and unspecified malignant neoplasm of lymph nodes of head, face and neck; G89.29 Other chronic pain; D69.6 Thrombocytopenia, unspecified; F10.11 Alcohol abuse, in remission; F17.210 Nicotine dependence, cigarettes, uncomplicated; Z86.19 Personal history of other infectious and parasitic diseases; Z92.21 Personal history of antineoplastic chemotherapy; Z90.49 Acquired absence of other specified parts of digestive tract
CPT/HCPCS: 99214

== ENCOUNTER 2020-07-26 05:37 | Outpatient (CLI) | payer MEDICAID, SELFPAY ==
[2020-07-26 15:05] LABS: Basophils # 0.1 10^3/uL (0.0-0.1); Eosinophils # 0.2 10^3/uL (0.0-0.8); Eosinophils % 3.4 %; Hematocrit 40.4 % (37.0-47.0); Lymphocytes # 1.8 10^3/uL (0.8-4.8); Lymphocytes % 26.4 %; Mean Corpuscular HGB Conc 32.2 g/dL (30.0-36.0); Mean Corpuscular Hemoglobin 31.3 pg (28.0-34.0); Mean Corpuscular Volume 97.3 fL (81-99); Mean Platelet Volume 10.7 fL (7.4-10.4); Monocytes # 0.3 10^3/uL (0.2-0.9); Neutrophils # 4.37 10^3/uL (1.8-7.7); Neutrophils % 64.1 %; Nucleated Red Blood Cells % 0 %; Platelet Count 154 10^3/cmm (130-400); Red Blood Count 4.15 10^6/uL (4.1-5.3); Red Cell Distribution Width 13.7 % (12.1-15.1); White Blood Count 6.8 10^3/uL (4.0-10.0)
[2020-07-26 16:01] LABS: Alanine Aminotransferase 13 U/L (0-33); Albumin Level 3.6 g/dL (3.5-5.2); Alkaline Phosphatase 126 IU/L (35-105); Anion Gap 13.4 (5-19); Aspartate Amino Transferase 31 U/L (0-32); Blood Urea Nitrogen 11 mg/dL (6-20); CA 125 18.9 U/mL (0-35); Calcium 9.3 mg/dL (8.5-10.5); Carbon Dioxide 28 mmol/L (22-29); Chloride 101 mmol/L (98-107); Globulin 3.6 g/dL (1.3-4.6); Glomerular Filtration Rate 58.5 mL/min (90-130); Glucose 102 mg/dL (65-115); Osmolality Calculated 286 mOsm/kg (285-295); Potassium 4.4 mmol/L (3.5-5.1); Sodium 138 mmol/L (136-145); Total Bilirubin 0.4 mg/dL (0.15-1.2); Total Protein 7.2 g/dL (6.6-8.7)
[2020-07-26 16:12] LABS: Carcinoembryonic Antigen 11.7 ng/mL (0.0-4.7)
--- NOTE | 2020-08-02 16:59 | ONC FU_ITS ---
[facility] Patient Note Patient: Karo Rand Unit #: [id number]: 1970 Dictated By: Ilya GarlandDate of Visit: Jul 26, 2020 Onc MED Follow-Up/Prog Note Chief Complaint: Metastatic colon cancer History of Present Illness: Mrs. Rand is a 49 -year-old female with history of hepatitis C and recently developed right lower quadrant pain. She underwent an abdominal sonogram on 07/17/2017 which showed hepatomegaly with fatty liver or diffuse hepatocellular disease, spleen was within normal limit. Follow-up CT scan of abdomen was recommended on 07/25/[address] scan of abdomen pelvis which showed abnormal appearance to the liver which was new since prior CT scan done on 03/31/2016 and was not seen on the recent ultrasound. Infiltrating area of decreased attenuation with capsular contraction and fluid over the right lobe of the liver. A CBC done on 10/04/2017 showed white blood count 8.2 hemoglobin 12.8 crit 37.9 platelets 79,000. She had complaints of rectal bleed for 6 months. Initially, she was referred to [place] for colonoscopy but patient did not go there. Eventually, she underwent colonoscopy in November 2017. At that time, she was diagnosed with colorectal cancer and she was referred to Dr. Keenan in [place] for surgery. She apparently developed C. difficile infection repeatedly , requiring hospitalization, so she did not see Dr. Keenan till February 2018. Finally, on 04/15/2018 she underwent laparoscopic low anterior resection of sigmoid colon with en bloc right salpingo-oophorectomy and left salpingectomy. The final pathology report showed sigmoid colon/upper rectum tumor size 4.8 x 3.1 x 1.5 cm, adenocarcinoma, well-differentiated, tumor invades muscularis propria surgical margins clean no lymphovascular invasion T2, 1 out of 26 lymph node were examined showed metastatic disease N1. During surgery, her liver appeared to be of normal size with no evidence of liver tumor. Mrs Rand has a history of alcohol abuse-stating ,she used to drink hard liquor now six pack of beer every weekend. She reports she also smokes about pack a day. Mrs Rand said she has history of hepatitis C infection but has never been treated. Ms Rand states her primary care physician, , wants her to finish chemotherapy first before consider anti-hep C treatment. Ms. Rand did have port placement with Dr. Pedersen with a left subclavian venous access device on 08/04/2018. She was started on adjuvant chemotherapy with FOLFOX on September 10, 2019 and patient received second/last dose of chemotherapy with FOLFOX on September 24, 2019 and at that time she decided to discontinue chemotherapy AGAINST MEDICAL ADVICE, knowing the risk versus benefits. She was offered second opinion or referral to another facility or medical oncologist but patient declined and stated she would rather trust God and think He has cured her. ?INTERIM HISTORY: Mrs Rand reports that in the spring, she noticed a mass in her right lower neck. She continued to observe and eventually went to see her primary care physician. She was given oral antibiotics and did have a CT scan of the neck which confirmed the mass. As the mass continued to grow, she eventually went to see Dr. Nguyen who obtained a CT scan of abdomen pelvis on 03/31/2020 which showed heterogeneous enhancing involving right hepatic lobe with capsular thickening/fluid but unchanged when compared with previous exams. This CT also showed new low-attenuation lesion in the left lower pelvis along with left adnexa measuring 4.5 x 5.5 cm, for which she was at referred to [facility], Dr. Reed. She saw him in early June 2020 and underwent sonogram. As per patient when she was 18 years old she had a hysterectomy done along with 1 ovary removed and when she underwent colon surgery in March 2018, other ovary was also removed. As far as, right lower neck mass is concerned patient underwent excisional biopsy of right deep cervical lymph node on April 25, 2020 and final pathology report came back consistent with metastatic adenocarcinoma most consistent with colorectal origin. CT PET scan done on June 25, 2020 showed presacral pelvic soft tissue mass measuring 1.5 cm with SUV of 5.2 consistent with recurrence. There were bilateral retroperitoneal nodes in the periaortic distribution, subcentimeter in size with SUV up to 5.5. Solitary mesenteric root 1.2 cm lymph node with SUV 3.6. Normal liver, a solitary right supraclavicular lymph node measuring 1.1 cm and the left mediastinum superior Paratracheal 2L lymph node measuring 1.7 cm are FDG positive. Subpleural pulmonary nodule in the right upper lobe, left upper lobe and superior segment of left lower lobe measuring up to 5 mm are too small to characterize. Mrs Rand was last seen here in this clinic in October 2018 at that time patient decided not to come back. She did follow-up with her primary care physician and also had her Port-A-Cath removed from her left chest. She has evidence of disease progression and has once again been offered treatment with chemotherapy. She refuses to utilize IV chemotherapy but has agreed to a trial of single agent Xeloda. She has complaints of persistent chronic back pain, not being controlled with the current pain medication. Mrs. Rand is here today for follow-up and education regarding capecitabine. She has received the medication. Her current prescription is to take capecitabine (Xeloda) 1800 mg (two 150 mg tablets and three 500 mg tablets) twice daily for 14 days and rest for 7 days then repeat. She has no new complaints other than her chronic/persistent back pain. She states that the current pain medication is not working. We have discussed treatment options at length for her pain. She states that the morphine sedated her knocked her out . She states the hydrocodone does seem to help some but just does not relieving her pain completely. She is at 10/325 mg up to 5 or 6 times a day on extreme days. They do make her little queasy but nothing that she has not been able to tolerate. She states her appetite is fair. Her energy is marginal. She denies any shortness of breath orthopnea. She denies any fever or chills. She has had no known Covid symptoms or exposure. She denies any pending Covid test. She feels symptoms are sluggish but she can control them with some diet and stool softener/laxative. Her bladder is normal for her. She states that over the weekend she was on the Klip.in and did kill a deer but had to have her family bring it in for her. She states hunting is her hobby. Other than her back pain she states she has no other concerns today. Her ECOG is 1. Past Medical History: Abnormal weight gain Chronic liver failure Fibromyalgia Hepatitis C Multiple sclerosis Personality disorder Rheumatoid arthritis Past Surgical History: Cholecystectomy Hysterectomy/bilateral salpingectomy-oophorectomy Left Subclavian venous access device-Dr Pedersen-[facility] [place] in 2018 Allergies: Latex, NSAIDs, Penicillins, and PROzac. Medications: Estradiol 1 Tablet (of 1 mg) Oral daily Gabapentin 1 Tablet (of 800 mg) Oral t.i.d. HYDROcodone-Acetaminophen 1 - 2 Tablet (of 10-325 mg) Oral q 4 hours PRN Morphine Sulfate ER 1 Tablet (of 15 mg) Tablet ER 12 HR Abuse-Deterrent Oral daily Family History: Ms. Rand's mother is alive: Parkinson. Ms. Rand's father at age 69: Throat Cancer. Social History: Ms. Rand is and she is unemployed. She is a daily smoker who smokes 0.5 packs/day. She drinks occasionally. She has indicated exposure to the following products: cigarettes. Occasionally has a beer in the evenings. Review Of Symptoms: Constitutional Denies fevers, chills, night sweats, excessive fatigue or weight loss. Allergic/Immunologic No reactions. Eyes Denies significant visual changes. No diplopia. No amaurosis. ENMT Denies changes in hearing, sore throat, mouth sores, difficulty or changes in swallowing ability, and/or sinus drainage. Endocrine No diabetes, thyroid disease or hormone replacement. Denies hot flashes or night sweats. Hematologic/Lymphatic Denies easy bruising or bleeding. The patient denies any tender or palpable lymph nodes. Respiratory Denies dyspnea on exertion, chest pain, cough or hemoptysis. Denies orthopnea. Cardiovascular Denies anginal chest pain, palpitations or orthopnea. Gastrointestinal Denies nausea, vomiting, GI bleeding, or constipation. Denies change in bowel habits and/or stool color, no heartburn or early satiety. Genitourinary (F) No hematuria, hesitancy, incontinence, vaginal bleeding, discharge or other problems with urination. Musculoskeletal Denies joint pain, swelling or redness. No decreased range of motion. Chronic back pain-see above. Integumentary Denies chronic rashes, inflammation, ulcerations or skin changes. Neurologic Denies headache, blurred vision, and no areas of focal weakness or numbness. Normal gait. No sensory problems. Psychiatric Denies insomnia, depression, brian or mood swings. Vital Signs: Performed on Jul 26, 2020 13:35 Height - 64.00 in Weight - 182.6 lbs (HIGH) BSA - 1.88 sq.m BMI - 31.34 (HIGH) Temperature - 98.0 F (LOW) Pulse - 99 /min Respiration - 18 /min BP - 105/70 mm(hg) O2 Sat - 95 % (LOW) Pain - 9,1 - No physically strenuous activity, but ambulatory and able to carry out light or sedentary work (e.g. office work, light house work). (ECOG) Physical Examination: Constitutional Alert, oriented, no acute distress. Skin pink, warm and dry. Head Normocephalic; atraumatic. Eyes Conjunctivae and sclerae are clear and without icterus. Pupils are reactive and equal. Neck Supple without masses or thyromegaly. No jugular venous distension. Hematologic/Lymphatic No petechiae or purpura. No tender or palpable lymph nodes in the cervical or supraclavicular areas. Respiratory Lungs are clear to auscultation without rhonchi or wheezing. Cardiovascular Regular rate and rhythm of heart without murmurs,clicks, gallops or rubs. Abdomen Non-tender, non-distended, no masses or ascites. Good bowel sounds noted in all quads. No guarding or rebound tenderness. No pulsatile masses. Back/Spine Non-tender to palpation. Extremities No visible deformities, no cyanosis, clubbing or edema. Musculoskeletal No tenderness or swelling, normal range of motion without obvious weakness. Integumentary No rashes or lesions. Neurologic No sensory or motor deficits, normal cerebellar function, normal gait. Psychiatric Alert and oriented times three. Coherent speech. Verbalizes understanding of our discussions today. Laboratory:Test performed on Jul 26, 2020 14:50 Sodium 138 mmol/L Potassium 4.4 mmol/L Chloride 101 mmol/L CO2 28 mmol/L Anion Gap 13.4 BUN 11 mg/dL Creatinine 1.0 mg/dL Cr Clearance (Est) 87.0300 mL/min eGFR 58.5 mL/min Glucose 102 mg/dL Osmolality - Calculated 286 mOsm/kg Calcium 9.3 mg/dL Protein, Total 7.2 g/dL Albumin 3.6 g/dL Globulin 3.6 g/dL Bilirubin, Total 0.4 mg/dL ALT (SGPT) 13 U/L AST (SGOT) 31 U/L Alkaline Phosphatase 126 IU/L WBC 6.8 10 3/uL RBC 4.15 10 6/uL HGB 13.0 g/dL HCT 40.4 % MCV 97.3 fL MCH 31.3 pg MCHC 32.2 g/dL RDW 13.7 % Platelet Count 154 10 3/cmm MPV 10.7 fL Neutrophils 4.37 10 3/uL Lymphocytes 1.8 10 3/uL Monocytes 0.3 10 3/uL Eosinophils 0.2 10 3/uL Basophils 0.1 10 3/uL Neutrophil % 64.1 % Lymphocyte % 26.4 % Monocyte % 5.0 % Eosinophil % 3.4 % Basophils % 1.0 % NRBC % 0 % CA-125 18.9 U/mL CEA 11.7 ng/mL Impression: Metastatic colorectal cancer per right cervical lymph node excisional biopsy done on April 25, 2020, immunohistochemistry showed positive for CDX2, CEA, CK20, CK Philip and negative for Napsin, TTF-1, ER. CT scan of abdomen pelvis done on March 31, 2020 showed stable heterogeneous enhancement involving the right hepatic lobe with capsular thickening/fluid. And new low-attenuation lesion in the left lower pelvis along the left adnexa measuring 4.5 x [address] PET scan done on June 25, 2020 showed presacral pelvic soft tissue mass consistent with recurrence. Malignant abdominal retroperitoneal and mesenteric lymphadenopathy size about 1.5 cm. Malignant right supraclavicular left mediastinal paratracheal adenopathy and 5 mm subpleural pulmonary nodules are too small to characterize h/o Adenocarcinoma of sigmoid colon/upper rectum status post laparoscopic low anterior resection with en bloc right salpingo-oophorectomy and left salpingectomy done on 04/15/2018 Final pathology report shows adenocarcinoma well differentiated 4.8 x 3.1 x 1.5 cm, no lymphovascular or perineural invasion seen, surgical margins clear, tumor invades muscularis propria T2 next 1 out of 26 lymph nodes were examined showed metastatic disease N1 stage pIIIa Isolated mild Thrombocytopenia ? Etiology could be due to low-grade ITP, or due to hep C reactivation, or due to alcohol induced bone marrow suppression., Idiopathic or due to platelet clumping. Area of low attenuation along the periphery and right lobe of the liver towards the diaphragmatic surface surrounding portal vein, differential could be, benign or infiltrating neoplasm such as hepatocellular carcinoma or cholangiocarcinoma or fibrosis During surgery for colorectal cancer on 04/15/2018 liver appeared to be normal showed no masses as per surgeon's note discussed with the patient her disease status and treatment options. He has advised adjuvant chemotherapy with FOLFOX every 2 weeks ???12. And also refer her to radiation oncology for evaluation for a role of adjuvant radiation therapy. As far as hepatitis C is concern, case was discussed with her primary care physician Dr. chance , and there is a no documentation about hep C but Dr. chance will evaluate her and manage if needed. Ms. Rand underwent venous access device placement with Dr. Pedersen with subclavian venous access device on 08/04/2018. Apparently, it was removed in 2019v at her request as she had stopped IV chemotherapy. Started on FOLFOX on 09/10/2018 Patient received second/last dose on 09/24/2018 And then decided to discontinue chemotherapy AGAINST MEDICAL ADVICE, patient was aware of risk versus benefits. She was offered second opinion or referral to other facility or medical oncologist but patient declined. Dr Angel discussed with Mrs Rand her treatment options. She has metastatic colorectal cancer confirmed with right supraclavicular lymph node biopsy. She states she would agree for oral Xeloda alone as last time systemic chemotherapy made her sick. She would not consider IV chemotherapy but will try oral as long as not making her sick, so in that case we will consider single agent Xeloda 1000 mg/m??? p.o. twice daily for day 1 through 14 and repeat every [address] PET scan after 4-6 cycle to assess the response. Ms. Rand now has been found to have disease progression. She is not interested in pursuing IV chemotherapy has been offered chemotherapy with single agent capecitabine. History of chemotherapy treatments: 1. FOLFOX???2 cycles beginning on September 10, 2018 and last dose on September 24, 2018. Plan: 1. Metastatic colorectal cancer: Proceed with capecitabine 1800 mg twice daily for 14 days and rest for 7. She may begin that on 07/27/2020. A. Promethazine at home as needed for nausea. She states the promethazine has worked well for her in the past. She may try Zofran and/or Compazine if the promethazine is not successful and should she need at this time. Refill sent to [facility]. B. The patient was informed of chemotherapy plan and specific drugs were discussed. We also discussed how chemotherapy works and identified common side effects including alopecia; myelosuppression-including neutropenia, anemia, thrombocytopenia; peripheral neuropathy; fatigue; nausea; diarrhea; constipation; bleeding or bruising; skin changes-rash/dryness; mouth sores; drug hypersensitivity/allergic reactions or anaphylaxis and increased risk of blood clots. They have also been informed how to contact the clinic with side effects or symptoms, including but not limited to fever greater than 100.4???, chills, sore throat, bleeding or bruising that is not explained or mouth sores, cough, nasal discharge, diarrhea, constipation, nausea and/or vomiting not relieved with medications on hand at home, as well as any other concern or question they may have. Our hours are 8:00 a.m. to 4:30 p.m. on Saturday through and 8-12:00 on Saturday. However, someone is chief controller station 24 hours per day and they have been advised to contact the [facility] at if it is after hours. We have also discussed potential long-term side effects of chemotherapy including secondary cancers, infertility, pulmonary complications, cardiac complications, and again peripheral neuropathy. We have discussed that they certainly need to let us know before taking any antioxidants or herbal or further dietary supplements, as we are unsure of how these agents react with chemotherapy and we request that they avoid these products for now. They were informed that it is okay to take multivitamins at normal doses. They verbally state that they understand to take all medications as directed by their healthcare provider unless otherwise indicated. Instructions for oral care with baking soda and salt water rinses as well as a guide for use of [id number] medication were provided with the treatment plan. They have been given a written patient treatment plan, of which a copy is in the chart, as well as specific drug information. They have no questions and verbalized understanding and are willing to proceed with chemotherapy at this time. The majority of this visit was spent in face to face communication with this patient and/or his/her family in regards to plan of care, side effect identification and management (greater than 45 minutes). C. AVOID GRAPEFRUIT PRODUCTS WITH XELODA. 2. Chronic back pain???uncontrolled: After consulting with Dr. Rosenthal, who is covering for Dr. Angel, and discussing it at length with Mrs. Rand pain treatment options, it is elected to try her on Duragesic 25 mcg every 72 hours. She has had experience with this with the family member in the past and states it worked well for him. We did discuss at length that it will take a good 12 to 24 hours for her to even know that she has the patch on due to the time-released mechanisms of the patch. She denies any skin allergy or irritation from tape or adhesives. A. She will continue the hydrocodone 10/325 mg for breakthrough pain. 3. Followup Plan: Return in 2 weeks with CBC CMP follow-up post starting the capecitabine. This is a Dr. Angel's request. I did ask for baseline CBC, CMP, CA-125 today as well as her last labs were July 04, 2020. 4. Mrs. Rand was encouraged to contact us in interim should questions or problems arise or if she is having any problems with the current pain treatment plan. Signed By: Ilya Garland-, AOP Ronin Angel MD <<Signature on File>>
== END 2020-07-26 05:38 | disposition home or self-care (01) ==
PROVIDERS: PCP Family Medicine; Visit Provider Nurse Practitioner
DX: C18.8 Malignant neoplasm of overlapping sites of colon (principal); C77.8 Secondary and unspecified malignant neoplasm of lymph nodes of multiple regions; K76.0 Fatty (change of) liver, not elsewhere classified; G89.29 Other chronic pain; M54.9 Dorsalgia, unspecified; F17.210 Nicotine dependence, cigarettes, uncomplicated; Z79.891 Long term (current) use of opiate analgesic
CPT/HCPCS: 80053; 82378; 85025; 86304; 99215

== ENCOUNTER 2020-08-09 05:39 | Outpatient (CLI) | payer MEDICAID, SELFPAY ==
[2020-08-09 14:32] LABS: Basophils # 0.1 10^3/uL (0.0-0.1); Basophils % 1.1 %; Eosinophils # 0.3 10^3/uL (0.0-0.8); Eosinophils % 5.5 %; Hematocrit 37.6 % (37.0-47.0); Hemoglobin 12.3 g/dL (11.5-15.3); Lymphocytes # 1.7 10^3/uL (0.8-4.8); Lymphocytes % 31.9 %; Mean Corpuscular HGB Conc 32.7 g/dL (30.0-36.0); Mean Corpuscular Hemoglobin 31.3 pg (28.0-34.0); Mean Corpuscular Volume 95.7 fL (81-99); Mean Platelet Volume 10.4 fL (7.4-10.4); Monocytes # 0.4 10^3/uL (0.2-0.9); Monocytes % 7.6 %; Neutrophils # 2.83 10^3/uL (1.8-7.7); Neutrophils % 53.5 %; Nucleated Red Blood Cells % 0 %; Platelet Count 163 10^3/cmm (130-400); Red Blood Count 3.93 10^6/uL (4.1-5.3); White Blood Count 5.3 10^3/uL (4.0-10.0)
[2020-08-09 14:56] LABS: Alanine Aminotransferase 8 U/L (0-33); Albumin Level 3.7 g/dL (3.5-5.2); Alkaline Phosphatase 105 IU/L (35-105); Anion Gap 14.2 (5-19); Aspartate Amino Transferase 24 U/L (0-32); Blood Urea Nitrogen 7 mg/dL (6-20); Calcium 9.3 mg/dL (8.5-10.5); Carbon Dioxide 25 mmol/L (22-29); Chloride 99 mmol/L (98-107); Globulin 3.9 g/dL (1.3-4.6); Glomerular Filtration Rate 75.6 mL/min (90-130); Glucose 79 mg/dL (65-115); Osmolality Calculated 275 mOsm/kg (285-295); Potassium 4.2 mmol/L (3.5-5.1); Sodium 134 mmol/L (136-145); Total Bilirubin 0.4 mg/dL (0.15-1.2); Total Protein 7.6 g/dL (6.6-8.7)
--- NOTE | 2020-08-09 16:20 | ONC FU_ITS ---
Dr. Angel follow up note Patient: Karo Rand Unit #: [id number]: [id number] Dicatated By: Ronni Angel M.D.Date of Visit:Aug 09, 2020 Onc Med Follow-up/Prog Note History of Present Illness: Mrs. Rand is a 49 -year-old female with history of hepatitis C and recently developed right lower quadrant pain. She underwent an abdominal sonogram on 07/17/2017 which showed hepatomegaly with fatty liver or diffuse hepatocellular disease, spleen was within normal limit. Follow-up CT scan of abdomen was recommended on 07/25/[address] scan of abdomen pelvis which showed abnormal appearance to the liver which was new since prior CT scan done on 03/31/2016 and was not seen on the recent ultrasound. Infiltrating area of decreased attenuation with capsular contraction and fluid over the right lobe of the liver. A CBC done on 10/04/2017 showed white blood count 8.2 hemoglobin 12.8 crit 37.9 platelets 79,000. She had complaints of rectal bleed for 6 months. Initially, she was referred to [place] for colonoscopy but patient did not go there. Eventually, she underwent colonoscopy in November 2017. At that time, she was diagnosed with colorectal cancer and she was referred to Dr. Keenan in [place] for surgery. She apparently developed C. difficile infection repeatedly , requiring hospitalization, so she did not see Dr. Keenan till February 2018. Finally, on 04/15/2018 she underwent laparoscopic low anterior resection of sigmoid colon with en bloc right salpingo-oophorectomy and left salpingectomy. The final pathology report showed sigmoid colon/upper rectum tumor size 4.8 x 3.1 x 1.5 cm, adenocarcinoma, well-differentiated, tumor invades muscularis propria surgical margins clean no lymphovascular invasion T2, 1 out of 26 lymph node were examined showed metastatic disease N1. During surgery, her liver appeared to be of normal size with no evidence of liver tumor. Mrs Rand has a history of alcohol abuse-stating ,she used to drink hard liquor now six pack of beer every weekend. She reports she also smokes about pack a day. Mrs Rand said she has history of hepatitis C infection but has never been treated. Ms Rand states her primary care physician, , wants her to finish chemotherapy first before consider anti-hep C treatment. Ms. Rand did have port placement with Dr. Pedersen with a left subclavian venous access device on 08/04/2018. She was started on adjuvant chemotherapy with FOLFOX on September 10, 2019 and patient received second/last dose of chemotherapy with FOLFOX on September 24, 2019 and at that time she decided to discontinue chemotherapy AGAINST MEDICAL ADVICE, knowing the risk versus benefits. She was offered second opinion or referral to another facility or medical oncologist but patient declined and stated she would rather trust God and think He has cured her. ?INTERIM HISTORY: Mrs Rand reports that in the spring, she noticed a mass in her right lower neck. She continued to observe and eventually went to see her primary care physician. She was given oral antibiotics and did have a CT scan of the neck which confirmed the mass. As the mass continued to grow, she eventually went to see Dr. Nguyen who obtained a CT scan of abdomen pelvis on 03/31/2020 which showed heterogeneous enhancing involving right hepatic lobe with capsular thickening/fluid but unchanged when compared with previous exams. This CT also showed new low-attenuation lesion in the left lower pelvis along with left adnexa measuring 4.5 x 5.5 cm, for which she was at referred to [facility], Dr. Reed. She saw him in early June 2020 and underwent sonogram. As per patient when she was 18 years old she had a hysterectomy done along with 1 ovary removed and when she underwent colon surgery in March 2018, other ovary was also removed. As far as, right lower neck mass is concerned patient underwent excisional biopsy of right deep cervical lymph node on April 25, 2020 and final pathology report came back consistent with metastatic adenocarcinoma most consistent with colorectal origin. CT PET scan done on June 25, 2020 showed presacral pelvic soft tissue mass measuring 1.5 cm with SUV of 5.2 consistent with recurrence. There were bilateral retroperitoneal nodes in the periaortic distribution, subcentimeter in size with SUV up to 5.5. Solitary mesenteric root 1.2 cm lymph node with SUV 3.6. Normal liver, a solitary right supraclavicular lymph node measuring 1.1 cm and the left mediastinum superior Paratracheal 2L lymph node measuring 1.7 cm are FDG positive. Subpleural pulmonary nodule in the right upper lobe, left upper lobe and superior segment of left lower lobe measuring up to 5 mm are too small to characterize. Mrs Rand was last seen here in this clinic in October 2018 at that time patient decided not to come back. She did follow-up with her primary care physician and also had her Port-A-Cath removed from her left chest. She has evidence of disease progression and has once again been offered treatment with chemotherapy. She refuses to utilize IV chemotherapy but has agreed to a trial of single agent Xeloda. She has complaints of persistent chronic back pain, on narcotics Started first cycle of oral Xeloda 1800 mg p.o. twice a day on August 01, 2020 and dose was reduced to 1500 mg p.o. twice a day on August 09, 2020 because of skin rash involving bilateral dorsum of hand and face Came for follow-up, denies any specific complaints except episode of skin rash involving both hands especially on the dorsum side and on the face but no mouth sores, no diarrhea, no abdominal pain, no jaundice, no nausea or vomiting, no fever chills patient having generalized pain including back pain requiring narcotics, she was referred to pain clinic initially patient was reluctant but now agreed and requesting pain medication until she get into pain clinic. Tolerating oral Xeloda well otherwise Medications: Estradiol 1 Tablet (of 1 mg) Oral daily, Gabapentin 1 Tablet (of 800 mg) Oral t.i.d., HYDROcodone-Acetaminophen 1 - 2 Tablet (of 10-325 mg) Oral q 4 hours PRN, Morphine Sulfate ER 1 Tablet (of 15 mg) Tablet ER 12 HR Abuse-Deterrent Oral daily Allergies: Latex, NSAIDs, Penicillins, and PROzac. Review of Systems: Constitutional - Appetite is good and weight is stable. No fever, positive for night sweats, or hot flashes. Energy level is poor, ENMT - No sinus congestion/drainage. Positive for mouth sores. Positive for sore throat and difficulty swallowing, Hematologic/Lymphatic - No abnormal bruising or bleeding, Respiratory - Positive for shortness of breath. No cough. No pleuritic pain or hemoptysis, Cardiovascular - No angina pain. No palpitations, Gastrointestinal - Positive for nausea or vomiting. No heartburn or acid reflux. No diarrhea , positive for constipation. No blood in the stool or black stools, Genitourinary (F) - No dysuria or hematuria. No urinary frequency. No urgency or incontinence, Musculoskeletal - Positve for joint or bone pain, Neurologic - Positive for headache or dizziness. Positive for numbness or tingling. No other focal neurologic symptoms, Psychiatric - No anxiety. Positive for depression. Positive for insomnia. Vital Signs: Performed on Aug 09, 2020 15:24 Height - 64.00 in Weight - 178.0 lbs (LOW) BSA - 1.86 sq.m BMI - 30.55 (HIGH) Temperature - 98.2 F (LOW) Pulse - 84 /min Respiration - 24 /min BP - 146/84 mm(hg) (HIGH) O2 Sat - 100 % Pain - 10 Performance Status: 1 - No physically strenuous activity, but ambulatory and able to carry out light or sedentary work (e.g. office work, light house work). (ECOG) Physical Examination: ENMT - No mouth sores, no thrush, no jaundice, Respiratory - Lungs are clear to auscultation, Cardiovascular - Regular rate and rhythm of heart, Abdomen - Soft, bowel sounds present, Extremities - No visible edema or rash. Lab/Imaging: Test performed on Jul 26, 2020 14:50 Sodium 138 mmol/L Potassium 4.4 mmol/L Chloride 101 mmol/L CO2 28 mmol/L Anion Gap 13.4 BUN 11 mg/dL Creatinine 1.0 mg/dL Cr Clearance (Est) 87.0300 mL/min eGFR 58.5 mL/min Glucose 102 mg/dL Osmolality - Calculated 286 mOsm/kg Calcium 9.3 mg/dL Protein, Total 7.2 g/dL Albumin 3.6 g/dL Globulin 3.6 g/dL Bilirubin, Total 0.4 mg/dL ALT (SGPT) 13 U/L AST (SGOT) 31 U/L Alkaline Phosphatase 126 IU/L WBC 6.8 10 3/uL RBC 4.15 10 6/uL HGB 13.0 g/dL HCT 40.4 % MCV 97.3 fL MCH 31.3 pg MCHC 32.2 g/dL RDW 13.7 % Platelet Count 154 10 3/cmm MPV 10.7 fL Neutrophils 4.37 10 3/uL Lymphocytes 1.8 10 3/uL Monocytes 0.3 10 3/uL Eosinophils 0.2 10 3/uL Basophils 0.1 10 3/uL Neutrophil % 64.1 % Lymphocyte % 26.4 % Monocyte % 5.0 % Eosinophil % 3.4 % Basophils % 1.0 % NRBC % 0 % CA-125 18.9 U/mL CEA 11.7 ng/mL Impression: Metastatic colorectal cancer per right cervical lymph node excisional biopsy done on April 25, 2020, immunohistochemistry showed positive for CDX2, CEA, CK20, CK Philip and negative for Napsin, TTF-1, ER. CT scan of abdomen pelvis done on March 31, 2020 showed stable heterogeneous enhancement involving the right hepatic lobe with capsular thickening/fluid. And new low-attenuation lesion in the left lower pelvis along the left adnexa measuring 4.5 x [address] PET scan done on June 25, 2020 showed presacral pelvic soft tissue mass consistent with recurrence. Malignant abdominal retroperitoneal and mesenteric lymphadenopathy size about 1.5 cm. Malignant right supraclavicular left mediastinal paratracheal adenopathy and 5 mm subpleural pulmonary nodules are too small to characterize Started on oral Xeloda 1800 mg p.o. twice a day on August 01, 2020, but dose was reduced to 1500 mg p.o. twice daily, 2 weeks on 1 week off on August 09, 2020 because of skin rash involving bilateral hands and face h/o Adenocarcinoma of sigmoid colon/upper rectum status post laparoscopic low anterior resection with en bloc right salpingo-oophorectomy and left salpingectomy done on 04/15/2018 Final pathology report shows adenocarcinoma well differentiated 4.8 x 3.1 x 1.5 cm, no lymphovascular or perineural invasion seen, surgical margins clear, tumor invades muscularis propria T2 next 1 out of 26 lymph nodes were examined showed metastatic disease N1 stage pIIIa Isolated mild Thrombocytopenia ? Etiology could be due to low-grade ITP, or due to hep C reactivation, or due to alcohol induced bone marrow suppression., Idiopathic or due to platelet clumping. Area of low attenuation along the periphery and right lobe of the liver towards the diaphragmatic surface surrounding portal vein, differential could be, benign or infiltrating neoplasm such as hepatocellular carcinoma or cholangiocarcinoma or fibrosis During surgery for colorectal cancer on 04/15/2018 liver appeared to be normal showed no masses as per surgeon's note discussed with the patient her disease status and treatment options. He has advised adjuvant chemotherapy with FOLFOX every 2 weeks ???12. And also refer her to radiation oncology for evaluation for a role of adjuvant radiation therapy. As far as hepatitis C is concern, case was discussed with her primary care physician Dr. chance , and there is a no documentation about hep C but Dr. chance will evaluate her and manage if needed. Ms. Rand underwent venous access device placement with Dr. Pedersen with subclavian venous access device on 08/04/2018. Apparently, it was removed in 2018. Started on FOLFOX on 09/10/2018 Patient received second/last dose on 09/24/2018 And then decided to discontinue chemotherapy AGAINST MEDICAL ADVICE, patient was aware of risk versus benefits. She was offered second opinion or referral to other facility or medical oncologist but patient declined. Dr Angel discussed with Mrs Rand her treatment options. She has metastatic colorectal cancer confirmed with right supraclavicular lymph node biopsy. She states she would agree for oral Xeloda alone as last time systemic chemotherapy made her sick. She would not consider IV chemotherapy but will try oral as long as not making her sick, so in that case we will consider single agent Xeloda 1000 mg/m??? p.o. twice daily for day 1 through 14 and repeat every [address] PET scan after 4-6 cycle to assess the response. Ms. Rand now has been found to have disease progression. She is not interested in pursuing IV chemotherapy has been offered chemotherapy with single agent capecitabine. Plan: Discussed with patient regarding her labs white blood count five-point hemoglobin 12.3 hematocrit 37.6 platelets 163,000 CMP within normal limits Clinically, patient is doing well with no new signs symptoms tolerating palliative chemotherapy with oral Xeloda reasonably well but with expected side effects e.g. skin rash involving both hands and face, because of that she was advised to take Xeloda 1500 mg p.o. twice a day instead of 1800 mg p.o. twice daily. And then she will conclude her first cycle of oral Xeloda on August 15, 2020 and she will return to clinic in 2 weeks with CBC CMP. Patient was advised in case she has any skin rash or mouth sores, she need to call us otherwise we will see her back in 2 weeks As far as chronic pain is concerned, she will be referred to pain clinic for management in the meantime we will give her prescription for her pain medication. Signed By: Ronni Angel M.D. <<Signature on File>>
== END 2020-08-09 05:40 | disposition home or self-care (01) ==
LOC: ONCMED 05:40
PROVIDERS: PCP Family Medicine; Visit Provider Internal Medicine Hematology & Oncology
DX: C18.8 Malignant neoplasm of overlapping sites of colon (principal); C77.8 Secondary and unspecified malignant neoplasm of lymph nodes of multiple regions; R21 Rash and other nonspecific skin eruption; D69.6 Thrombocytopenia, unspecified; K76.0 Fatty (change of) liver, not elsewhere classified; Z79.899 Other long term (current) drug therapy
CPT/HCPCS: 36415; 80053; 85025; 99214

== ENCOUNTER 2020-08-22 13:14 | Emergency (ER) | payer MEDICAID, SELFPAY ==
[2020-08-22 13:38] VITALS: BP 129/84; PULSE 86; RESP 18; TEMP 36.7; O2SAT 100; BMI 19.7
--- NOTE | 2020-08-22 14:54 | W.ED.GENADLT ---
HPI - General Adult General: Chief complaint: General Medical Stated complaint: CANCER/ PAIN Time Seen by Provider: 08/22/20 14:30 Source: patient and EMS Mode of arrival: EMS Limitations: no limitations History of Present Illness: HPI narrative: 49-year-old female patient presents to the emergency department for refill of pain medication. She reports recently evaluated by oncology and was prescribed fentanyl patches, she reports pain medication is not effective. She also states ran out of hydrocodone. States has an appointment with her primary care provider Dr. Damon tomorrow and with oncology on Saturday. She is requesting enough medication to get her through until her follow-up with primary care tomorrow. She denies any further issues such as fever chills or chemotherapy induced side effects. Able to tolerate oral medication with normal intake of food and fluids. Location: abdomen (chronic) Radiation: non-radiation Severity: moderate and similar to prior episodes Severity scale (1-10): 7 Quality: aching and dull Pain Consistency: constant Relieving factors: other (medication) Exacerbating factors: none Associated symptoms: Reports malaise (chronic) and weakness (chronic - not changed); Deny chest pain, dyspnea, headache(s), nausea, rash, palpitations or vomiting Treatments prior to arrival: none Review of Systems General: Reports: 10 or more systems reviewed and unremarkable except in HPI and below Const: Reports: malaise (chronic) Eyes: Denies: blurry vision or eye redness ENMT: Denies: throat pain, dental pain or disequilibrium Card: Denies: chest pain, palpitations or irregular heart rhythm Resp: Denies: dyspnea, productive cough, non-productive cough or wheezing GI: Reports: abdominal pain (Chronic, unchanged); Denies: nausea or vomiting : Denies: difficulty voiding or dysuria Musc: Reports: back pain (Chronic) Skin/Breast: Denies: rash or pruritus Neuro: Denies: headache(s), weakness in extremities or behavioral changes Psych: Reports: anxiety, depression and hopelessness (Due to stage IV cancer); Denies: auditory hallucinations, suicidal ideation or homicidal ideation Lonnie/Lymph: Denies: easy bruising PFSH ED PFSH: Medical History (Updated 08/22/20 @ 15:01 by KAREN Pacheco) History of rectal cancer Surgical History History of arthroscopy of right shoulder History of removal of Port-a-Cath Hx of cholecystectomy Hx of colonoscopy (04/25/20) normal , repeat in 5 years Hx of hysterectomy S/P lymph node biopsy (04/25/20) right posterior triangle Family History Family/Other Breast cancer, Onset Age: 70 maternal great aunt Grandfather Colon cancer maternal Denies family history of Ovarian cancer Diabetes CAD (coronary artery disease) Hyperlipidemia Anesthesia complication Bleeding disorder Hypertension Uterine cancer Thyroid condition Stroke Social History Smoking and tobacco status: current every day smoker cigarettes Packs smoked per day: 0.5 Alcohol intake: current Alcohol intake frequency: holidays/special occasions only Alcohol type: beer Physical Exam Const: COMMON NORMALS: no acute distress, patient oriented x3, alert and well nourished EXAM LIMITATIONS: no altered mental status and no physical limitations GENERAL APPEARANCE: cooperative, comfortable, well kempt and well hydrated; not anxious and not ill appearing NUTRITIONAL APPEARANCE: obese ORIENTATION/CONSCIOUSNESS: Yes awake, Yes oriented to person, Yes oriented to place and Yes oriented to time HENMT: COMMON NORMALS: normocephalic, atraumatic, Normal external nose present and moist oral mucous membranes HEAD & SCALP: normal to inspection, normocephalic and atraumatic NOSE: Normal external nose present MOUTH: Normal oral and palatal mucosa present Eye: COMMON NORMALS: Equal, round and reactive pupils present GENERAL EYE: appearance normal, both eyes and all related structures PUPIL: Yes Equal, round and reactive pupils present Neck/C-Spine: COMMON NORMALS: full ROM and no lymphadenopathy GENERAL: Yes normal visual inspection and Yes trachea midline CERVICAL SPINE: Yes cervical ROM normal Lymph: LYMPHATIC: no lymphadenopathy noted Chest: COMMONS NORMALS: normal inspection of the chest and normal palpation of entire chest wall Resp: COMMON NORMALS: normal respiratory effort, No retractions and No use of accessory muscles EFFORT & INSPECTION: Yes able to speak in complete sentences and Yes other (Diminished in the bases) Cardio: COMMON NORMALS: regular rate, regular rhythm, S1 normal heart sound present, S2 normal heart sound present and Peripheral pulses 2+ throughout RATE: regular rate RHYTHM: regular rhythm HEART SOUNDS: S1 normal heart sound present and S2 normal heart sound present PERIPHERAL PULSES: Peripheral pulses 2+ throughout GI: COMMON NORMALS: Soft to palpation and non-tender INSPECTION: Yes normal to inspection PALPATION: Yes Soft to palpation : COMMON NORMALS: Yes no CVA tenderness BLADDER/KIDNEY EXAM: Yes no CVA tenderness Back/Pelvis: COMMON NORMALS: no CVA tenderness and thoracic and lumbar spine normal to inspection Extremity: COMMON NORMALS: normal to inspection and capillary refill normal Neuro: COMMON NORMALS: patient oriented x3 and no focal motor deficits SENSORIUM/ORIENTATION: Yes alert, Yes oriented to person, Yes oriented to place and Yes oriented to time Psych: COMMON NORMALS: mental status grossly normal, Normal thought process present, cooperative, normal affect, speech normal, denies hallucinations, denies homicidal ideation and denies suicidal ideation APPEARANCE: Yes grossly normal and Yes well kempt ATTITUDE: Yes calm ACTIVITY/MOTOR BEHAVIOR: Yes appropriate eye contact SPEECH: Yes normal speech MOOD & AFFECT: Yes sad and Yes tearful (due to pain) THOUGHT PROCESS: Normal thought process present ATTENTION/CONCENTRATION: Yes attention grossly intact MEMORY/COGNITION: Yes memory grossly intact INSIGHT: Good insight present (Psych) JUDGEMENT: Good judgement present (Psych) Skin: COMMON NORMALS: no rashes or lesions noted and turgor normal GENERAL SKIN EXAM: no rashes or lesions noted and turgor normal Course ED course: Please call to [facility] oncology, staff reports no further narcotics will be filled due to patient stated EtOH use. I discussed with Ms. Rand need for follow-up with Dr. Damon tomorrow. She will need to discuss pain management options at that time. She was given one-time dose of hydrocodone here in the ED to help with pain. She reports has not been drinking since diagnosis of cancer. She denies suicidal ideation plans or thoughts or need for detox at this time. She wants to go home, is grateful for medication received in the ED, she denies fever chills or other symptoms that would need work-up today. Vital Signs: Vital signs: Vital Signs Temperature 98.0 F 08/22/20 13:38 Pulse Rate 87 08/22/20 15:12 Respiratory Rate 14 08/22/20 15:12 Blood Pressure 121/85 08/22/20 15:12 Pulse Oximetry 99 08/22/20 15:12 Discharge Plan Discharge Patient Disposition: Home Clinical Impression: Chronic pain Qualifiers: Chronic pain type: due to neoplasm Qualified Code(s): G89.3 - Neoplasm related pain (acute) (chronic) Condition: Stable Prescriptions: No Action gabapentin 800 mg tablet 800 mg PO TID RF: 0 lorazepam 1 mg tablet 1 mg PO TID PRN (Reason: Anxiety) RF: 0 trazodone 50 mg tablet 25 mg PO DAILY RF: 0 hydrocodone-acetaminophen 10-325 mg tablet 1 tab PO Q8H PRNRF: 0 ropinirole [Requip] 3 mg Tablet 1.5 mg PO DAILY RF: 0 estradiol 1 mg Tablet 1 mg PO DAILY RF: 0 meloxicam 15 mg Tablet 15 mg PO DAILY RF: 0 amitriptyline 25 mg Tablet 25 mg PO DAILY RF: 0 Colace 100 mg capsule 100 mg PO BID Qty: 30 RF: 0 Discharge Orders: Discharge ED (Routine); Ordered 08/22/20 Ordered By: Marcia Pretty Referrals: Krysta Damon DO [Primary Care Provider] - Discharge Diet: Usual diet Discharge Activity: Resume usual activity Patient Instructions: Chronic Pain (ED), Opioid Dependence (ED) Activity Restrictions/Additional Instructions: Return to the emergency department if you develop difficulty breathing, fever or other concerning symptoms Follow-up with your primary care provider tomorrow without fail for narcotic discussion and pain medication refill Follow-up with oncology on Saturday as scheduled Coding Level of Care Code 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
[2020-08-22] MEDS: HYDROcodone-acetaminophen 5-325 mg Tablet 1 TAB PO (15:05)
[2020-08-22 15:12] VITALS: BP 121/85; PULSE 87; RESP 14; O2SAT 99
== END 2020-08-22 15:13 | disposition home or self-care (01) ==
PROVIDERS: Emergency Provider Nurse Practitioner Family; PCP Family Medicine
DX: G89.3 Neoplasm related pain (acute) (chronic) (principal); Z85.048 Personal history of other malignant neoplasm of rectum, rectosigmoid junction, and anus; F17.210 Nicotine dependence, cigarettes, uncomplicated
CPT/HCPCS: 12345; 99281; 99282

== ENCOUNTER 2020-08-24 05:53 | Outpatient (CLI) | payer MEDICAID, SELFPAY ==
[2020-08-24 14:28] LABS: Basophils % 0.6 %; Eosinophils # 0.4 10^3/uL (0.0-0.8); Eosinophils % 5.6 %; Hematocrit 34.7 % (37.0-47.0); Hemoglobin 11.3 g/dL (11.5-15.3); Lymphocytes # 2.6 10^3/uL (0.8-4.8); Lymphocytes % 41.2 %; Mean Corpuscular HGB Conc 32.6 g/dL (30.0-36.0); Mean Corpuscular Hemoglobin 31.6 pg (28.0-34.0); Mean Corpuscular Volume 96.9 fL (81-99); Mean Platelet Volume 9.9 fL (7.4-10.4); Monocytes # 0.4 10^3/uL (0.2-0.9); Monocytes % 5.6 %; Neutrophils % 46.8 %; Nucleated Red Blood Cells % 0 %; Platelet Count 150 10^3/cmm (130-400); Red Blood Count 3.58 10^6/uL (4.1-5.3); Red Cell Distribution Width 15.7 % (12.1-15.1); White Blood Count 6.2 10^3/uL (4.0-10.0)
[2020-08-24 14:40] LABS: Albumin Level 3.6 g/dL (3.5-5.2); Alkaline Phosphatase 107 IU/L (35-105); Anion Gap 12.4 (5-19); Aspartate Amino Transferase 21 U/L (0-32); Blood Urea Nitrogen 8 mg/dL (6-20); Carbon Dioxide 25 mmol/L (22-29); Chloride 105 mmol/L (98-107); Globulin 3.4 g/dL (1.3-4.6); Glomerular Filtration Rate 75.6 mL/min (90-130); Glucose 126 mg/dL (65-115); Osmolality Calculated 288 mOsm/kg (285-295); Potassium 3.4 mmol/L (3.5-5.1); Sodium 139 mmol/L (136-145); Total Bilirubin 0.3 mg/dL (0.15-1.2)
[2020-08-24 15:43] LABS: Alanine Aminotransferase 10 U/L (0-33)
--- NOTE | 2020-08-24 15:49 | ONC FU_ITS ---
Dr. Angel follow up note Patient: Karo Rand Unit #: [id number]: 1970 Dicatated By: Ronni Angel M.D.Date of Visit:Aug 24, 2020 Onc Med Follow-up/Prog Note History of Present Illness: Mrs. Rand is a 49 -year-old female with history of hepatitis C and recently developed right lower quadrant pain. She underwent an abdominal sonogram on 07/17/2017 which showed hepatomegaly with fatty liver or diffuse hepatocellular disease, spleen was within normal limit. Follow-up CT scan of abdomen was recommended on 07/25/[address] scan of abdomen pelvis which showed abnormal appearance to the liver which was new since prior CT scan done on 03/31/2016 and was not seen on the recent ultrasound. Infiltrating area of decreased attenuation with capsular contraction and fluid over the right lobe of the liver. A CBC done on 10/04/2017 showed white blood count 8.2 hemoglobin 12.8 crit 37.9 platelets 79,000. She had complaints of rectal bleed for 6 months. Initially, she was referred to [place] for colonoscopy but patient did not go there. Eventually, she underwent colonoscopy in November 2017. At that time, she was diagnosed with colorectal cancer and she was referred to Dr. Keenan in [place] for surgery. She apparently developed C. difficile infection repeatedly , requiring hospitalization, so she did not see Dr. Keenan till February 2018. Finally, on 04/15/2018 she underwent laparoscopic low anterior resection of sigmoid colon with en bloc right salpingo-oophorectomy and left salpingectomy. The final pathology report showed sigmoid colon/upper rectum tumor size 4.8 x 3.1 x 1.5 cm, adenocarcinoma, well-differentiated, tumor invades muscularis propria surgical margins clean no lymphovascular invasion T2, 1 out of 26 lymph node were examined showed metastatic disease N1. During surgery, her liver appeared to be of normal size with no evidence of liver tumor. Mrs Rand has a history of alcohol abuse-stating ,she used to drink hard liquor now six pack of beer every weekend. She reports she also smokes about pack a day. Mrs Rand said she has history of hepatitis C infection but has never been treated. Ms Rand states her primary care physician, , wants her to finish chemotherapy first before consider anti-hep C treatment. Ms. Rand did have port placement with Dr. Pedersen with a left subclavian venous access device on 08/04/2018. She was started on adjuvant chemotherapy with FOLFOX on September 10, 2019 and patient received second/last dose of chemotherapy with FOLFOX on September 24, 2019 and at that time she decided to discontinue chemotherapy AGAINST MEDICAL ADVICE, knowing the risk versus benefits. She was offered second opinion or referral to another facility or medical oncologist but patient declined and stated she would rather trust God and think He has cured her. ?INTERIM HISTORY: Mrs Rand reports that in the spring, she noticed a mass in her right lower neck. She continued to observe and eventually went to see her primary care physician. She was given oral antibiotics and did have a CT scan of the neck which confirmed the mass. As the mass continued to grow, she eventually went to see Dr. Nguyen who obtained a CT scan of abdomen pelvis on 03/31/2020 which showed heterogeneous enhancing involving right hepatic lobe with capsular thickening/fluid but unchanged when compared with previous exams. This CT also showed new low-attenuation lesion in the left lower pelvis along with left adnexa measuring 4.5 x 5.5 cm, for which she was at referred to [facility], Dr. Reed. She saw him in early June 2020 and underwent sonogram. As per patient when she was 18 years old she had a hysterectomy done along with 1 ovary removed and when she underwent colon surgery in March 2018, other ovary was also removed. As far as, right lower neck mass is concerned patient underwent excisional biopsy of right deep cervical lymph node on April 25, 2020 and final pathology report came back consistent with metastatic adenocarcinoma most consistent with colorectal origin. CT PET scan done on June 25, 2020 showed presacral pelvic soft tissue mass measuring 1.5 cm with SUV of 5.2 consistent with recurrence. There were bilateral retroperitoneal nodes in the periaortic distribution, subcentimeter in size with SUV up to 5.5. Solitary mesenteric root 1.2 cm lymph node with SUV 3.6. Normal liver, a solitary right supraclavicular lymph node measuring 1.1 cm and the left mediastinum superior Paratracheal 2L lymph node measuring 1.7 cm are FDG positive. Subpleural pulmonary nodule in the right upper lobe, left upper lobe and superior segment of left lower lobe measuring up to 5 mm are too small to characterize. Mrs Rand was last seen here in this clinic in October 2018 at that time patient decided not to come back. She did follow-up with her primary care physician and also had her Port-A-Cath removed from her left chest. She has evidence of disease progression and has once again been offered treatment with chemotherapy. She refuses to utilize IV chemotherapy but has agreed to a trial of single agent Xeloda. She has complaints of persistent chronic back pain, on narcotics Started first cycle of oral Xeloda 1800 mg p.o. twice a day on August 01, 2020 and dose was reduced to 1500 mg p.o. twice a day on August 09, 2020 because of skin rash involving bilateral dorsum of hand and face Came for follow-up, denies any specific complaints, no more skin rash, no diarrhea, no mouth sores, no abdominal pain, no jaundice, no fever chills, appetite is reasonable but still has generalized body pain/discomfort but under control with current medication. Patient states she has decided to stop Xeloda and does not want take any chemotherapy rather believe in God and who will take care of her. And also requesting hospice care Medications: Amitriptyline HCl 1 Tablet (of 10 mg) Oral daily, Estradiol 1 Tablet (of 1 mg) Oral daily, fentaNYL 1 Patch(es) (of 25 mcg/hr) Patch 72 Hr Transdermal q for 72 hours, Gabapentin 1 Tablet (of 800 mg) Oral t.i.d., LORazepam 1 Tablet (of 1 mg) Oral t.i.d. PRN, Meloxicam 1 Tablet (of 15 mg) Oral daily, Promethazine HCl 1 Tablet (of 25 mg) Oral four times a day, rOPINIRole HCl 1 Tablet (of 1 mg) Oral daily, traZODone HCl 1 Tablet (of 50 mg) Oral at bedtime, Xeloda 2 Tablet (of 150 mg) Oral b.i.d. for 14 days, Xeloda 3 Tablet (of 500 mg) Oral b.i.d. for 14 days Allergies: Latex, NSAIDs, Penicillins, and PROzac. Review of Systems: Review of Systems is not available for this patient. Vital Signs: Performed on Aug 24, 2020 14:12 Height - 64.00 in Weight - 177.2 lbs (LOW) BSA - 1.86 sq.m BMI - 30.42 (HIGH) Temperature - 96.9 F (LOW) Pulse - 81 /min Respiration - 17 /min BP - 124/76 mm(hg) O2 Sat - 98 % Pain - 8 Performance Status: 1 - No physically strenuous activity, but ambulatory and able to carry out light or sedentary work (e.g. office work, light house work). (ECOG) Physical Examination: ENMT - No mouth sores, no thrush, no jaundice, Respiratory - Lungs are clear to auscultation, Cardiovascular - Regular rate and rhythm of heart, Abdomen - Soft, bowel sounds present, Extremities - No visible edema. Lab/Imaging: Test performed on Aug 09, 2020 14:15 Sodium 134 mmol/L Potassium 4.2 mmol/L Chloride 99 mmol/L CO2 25 mmol/L Anion Gap 14.2 BUN 7 mg/dL Creatinine 0.8 mg/dL Cr Clearance (Est) 106.04 mL/min eGFR 75.6 mL/min Glucose 79 mg/dL Osmolality - Calculated 275 mOsm/kg Calcium 9.3 mg/dL Protein, Total 7.6 g/dL Albumin 3.7 g/dL Globulin 3.9 g/dL Bilirubin, Total 0.4 mg/dL ALT (SGPT) 8 U/L AST (SGOT) 24 U/L Alkaline Phosphatase 105 IU/L WBC 5.3 10 3/uL RBC 3.93 10 6/uL HGB 12.3 g/dL HCT 37.6 % MCV 95.7 fL MCH 31.3 pg MCHC 32.7 g/dL RDW 14.0 % Platelet Count 163 10 3/cmm MPV 10.4 fL Neutrophils 2.83 10 3/uL Lymphocytes 1.7 10 3/uL Monocytes 0.4 10 3/uL Eosinophils 0.3 10 3/uL Basophils 0.1 10 3/uL Neutrophil % 53.5 % Lymphocyte % 31.9 % Monocyte % 7.6 % Eosinophil % 5.5 % Basophils % 1.1 % NRBC % 0 % Test performed on Jul 26, 2020 14:50 CA-125 18.9 U/mL CEA 11.7 ng/mL Impression: Metastatic colorectal cancer per right cervical lymph node excisional biopsy done on April 25, 2020, immunohistochemistry showed positive for CDX2, CEA, CK20, CK Philip and negative for Napsin, TTF-1, ER. CT scan of abdomen pelvis done on March 31, 2020 showed stable heterogeneous enhancement involving the right hepatic lobe with capsular thickening/fluid. And new low-attenuation lesion in the left lower pelvis along the left adnexa measuring 4.5 [address] PET scan done on June 25, 2020 showed presacral pelvic soft tissue mass consistent with recurrence. Malignant abdominal retroperitoneal and mesenteric lymphadenopathy size about 1.5 cm. Malignant right supraclavicular left mediastinal paratracheal adenopathy and 5 mm subpleural pulmonary nodules are too small to characterize Started on oral Xeloda 1800 mg p.o. twice a day on August 01, 2020, but dose was reduced to 1500 mg p.o. twice daily, 2 weeks on 1 week off on August 09, 2020 because of skin rash involving bilateral hands and face h/o Adenocarcinoma of sigmoid colon/upper rectum status post laparoscopic low anterior resection with en bloc right salpingo-oophorectomy and left salpingectomy done on 04/15/2018 Final pathology report shows adenocarcinoma well differentiated 4.8 x 3.1 x 1.5 cm, no lymphovascular or perineural invasion seen, surgical margins clear, tumor invades muscularis propria T2 next 1 out of 26 lymph nodes were examined showed metastatic disease N1 stage pIIIa Isolated mild Thrombocytopenia ? Etiology could be due to low-grade ITP, or due to hep C reactivation, or due to alcohol induced bone marrow suppression., Idiopathic or due to platelet clumping. Area of low attenuation along the periphery and right lobe of the liver towards the diaphragmatic surface surrounding portal vein, differential could be, benign or infiltrating neoplasm such as hepatocellular carcinoma or cholangiocarcinoma or fibrosis During surgery for colorectal cancer on 04/15/2018 liver appeared to be normal showed no masses as per surgeon's note discussed with the patient her disease status and treatment options. He has advised adjuvant chemotherapy with FOLFOX every 2 weeks ???12. And also refer her to radiation oncology for evaluation for a role of adjuvant radiation therapy. As far as hepatitis C is concern, case was discussed with her primary care physician Dr. chance , and there is a no documentation about hep C but Dr. chance will evaluate her and manage if needed. Ms. Rand underwent venous access device placement with Dr. Pedersen with subclavian venous access device on 08/04/2018. Apparently, it was removed in 2019. Started on FOLFOX on 09/10/2018 Patient received second/last dose on 09/24/2018 And then decided to discontinue chemotherapy AGAINST MEDICAL ADVICE, patient was aware of risk versus benefits. She was offered second opinion or referral to other facility or medical oncologist but patient declined. Dr Angel discussed with Mrs Rand her treatment options. She has metastatic colorectal cancer confirmed with right supraclavicular lymph node biopsy. She states she would agree for oral Xeloda alone as last time systemic chemotherapy made her sick. She would not consider IV chemotherapy but will try oral as long as not making her sick, so in that case we will consider single agent Xeloda 1000 mg/m??? p.o. twice daily for day 1 through 14 and repeat every [address] PET scan after 4-6 cycle to assess the response. Ms. Rand now has been found to have disease progression. She is not interested in pursuing IV chemotherapy has been offered chemotherapy with single agent capecitabine. Plan: Discussed with patient regarding her labs white blood count 6.2 hemoglobin 11.3 hematocrit 34.7 platelets 150,000 CMP within normal limit except potassium 3.4 Clinically, patient is doing reasonably well, tolerating her oral Xeloda, modified dose, well, no more skin rash. Patient and her caregiver informed us today regarding their decision to stop palliative chemotherapy. Patient said as her cancer is not curable, and chemotherapy is interfering with her quality of life like earlier she had skin rash, which improved with a dose reduction now with just not feeling well and after discussion with family and friends, she has decided to stop her palliative chemotherapy, knowing the risk versus benefits, patient was suggested to think over it or was offered second opinion or referral to tertiary care center for evaluation for clinical trial but patient declined and now requesting hospice care. So at patient's request, we will discontinue oral Xeloda and refer her to hospice. Signed By: Ronni Angel M.D. <<Signature on File>>
== END 2020-08-24 05:54 | disposition home or self-care (01) ==
LOC: ONCMED 05:53
PROVIDERS: PCP Family Medicine; Visit Provider Internal Medicine Hematology & Oncology
DX: C18.8 Malignant neoplasm of overlapping sites of colon (principal); C77.8 Secondary and unspecified malignant neoplasm of lymph nodes of multiple regions; Z79.899 Other long term (current) drug therapy
CPT/HCPCS: 36415; 80053; 85025; 99214

== ENCOUNTER 2020-09-16 11:50 | Outpatient (CLI) | payer OTHER, MEDICAID, SELFPAY ==
[2020-09-19 09:00] LABS: Coronavirus Test Green County Not Detected
== END 2020-09-16 11:51 | disposition home or self-care (01) ==
PROVIDERS: PCP Family Medicine; Visit Provider Internal Medicine Medical Oncology
DX: Z20.828 Contact with and (suspected) exposure to other viral communicable diseases (principal)
CPT/HCPCS: 87635